=== PATIENT | male | born 1960 | race Caucasian/White ===

== ENCOUNTER 2020-03-20 08:32 | Outpatient (CLI) | payer OTHER, SELFPAY ==
--- NOTE | ~2020-03-20 | US_ITS ---
EXAMINATION: US right upper quadrant EXAM DATE: 03/20/2020 09:22 INDICATION: Gallbladder polyp. TECHNIQUE: Multiple grayscale and Doppler images of the abdomen right upper quadrant were obtained (b y a technologist who performed the scan) and subsequently reviewed. There is no prior study for marc keating. FINDINGS: The pancreatic head and body are normal in appearance. The pancreatic tail is not visualized. The l iver has normal echogenicity and contour. There are no focal liver lesions identified. There is no evidence of intrahepatic biliary duct dilation. Portal venous flow was seen in the hepatopedal, nor mal direction and has normal Doppler waveform. No right-sided hydronephrosis. Common bile duct measures 5 mm, which is normal. The gallbladder wall is normal in thickness, with ex pected amount of distention. No sonographic evidence of pericholecystic fluid. Probable identificat ion of a single 3 mm gallbladder polyp, benign and requiring no further evaluation. No cholelithiasis . Technologist performing exam reports patient did not demonstrate sonographic Mcdonald's sign. Please note that this sign is less reliable in patients who have received pain medication. IMPRESSION: No clinically significant findings. Reviewed, dictated and finalized at location B.
== END 2020-03-20 08:33 | disposition home or self-care (01) ==
LOC: ANHIMG 08:37
PROVIDERS: PCP Internal Medicine; Visit Provider Internal Medicine
DX: K82.4 Cholesterolosis of gallbladder (principal)
CPT/HCPCS: 76705

== ENCOUNTER → 2022-04-08 10:45 | Outpatient (CLI) | payer OTHER, SELFPAY ==
--- NOTE | ~2022-04-08 | US_ITS ---
US right upper quadrant DATE: 04/08/2022 11:18 INDICATION: Gallbladder polyp TECHNIQUE: Real-time imaging of liver, pancreas, gallbladder COMPARISON: 03/20/2020 right upper quadrant abdominal ultrasound examination FINDINGS: The pancreatic head and tail are obscured by bowel gas. No hepatic space-occupying mass lesion is evident. Normal hepatopedal portal venous flow direction. Stable approximately 3 mm polyp near the gallbladder neck. No gallstones, gallbladder wall thickening . Negative sonographic Mcdonald's sign. The common bile duct measures 5 mm, normal. IMPRESSION: Limited evaluation of the pancreas due to overlying bowel gas Stable 3 mm gallbladder polyp, not significantly changed in appearance since 03/20/2020 Reviewed, dictated and finalized at Location A. Reviewed, dictated and finalized at location A.
--- NOTE | ~2022-04-08 | US_ITS ---
This report was recreated on 04/22/2022. Original report was signed by Herman Ramey M.D. on 04/08/2022 14:18 CDT US right upper quadrant DATE: 04/08/2022 11:18 INDICATION: Gallbladder polyp TECHNIQUE: Real-time imaging of liver, pancreas, gallbladder COMPARISON: 03/20/2020 right upper quadrant abdominal ultrasound examination FINDINGS: The pancreatic head and tail are obscured by bowel gas. No hepatic space-occupying mass lesion is evident. Normal hepatopedal portal venous flow direction. Stable approximately 3 mm polyp near the gallbladder neck. No gallstones, gallbladder wall thickening. Negative sonographic Mcdonald's sign. The common bile duct measures 5 mm, normal. IMPRESSION: Limited evaluation of the pancreas due to overlying bowel gas Stable 3 mm gallbladder polyp, not significantly changed in appearance since 03/20/2020 Reviewed, dictated and finalized at Location A. Reviewed, dictated and finalized at location A. Dictated By: Herman Ramey MD 04/08/22 1415 Signed By: <Electronically signed by Herman Ramey MD in [place]> 04/08/22 1418 [facility]
== END ==
LOC: EXPGOSH 10:47 → EXPGOSHRAD 04-12 15:04
PROVIDERS: PCP Internal Medicine; Visit Provider Internal Medicine
DX: K82.4 Cholesterolosis of gallbladder (principal)
CPT/HCPCS: 76705

== ENCOUNTER 2023-05-10 14:37 | Emergency (ER) | payer OTHER, SELFPAY ==
--- NOTE | ~2023-05-10 | XR_ITS ---
EXAMINATION: XR finger 2nd RT min 2V INDICATION: Right second finger laceration TECHNIQUE: Three views of the right second finger are obtained. COMPARISON: None available FINDINGS: Bone alignment is normal. There is no fracture. There is soft tissue laceration of the dist al second finger. No radiopaque foreign body is identified. The joint spaces are normal. IMPRESSION: 1. Soft tissue laceration without acute osseous abnormality or radiopaque foreign body identified. Reviewed, dictated and finalized at location L. IMPRESSION: 1. Soft tissue laceration without acute osseous abnormality or radiopaque forei gn body identified.
[2023-05-10 14:46] VITALS: BP 119/76; PULSE 78; RESP 18; TEMP 36.8; O2SAT 98
--- NOTE | 2023-05-10 15:06 | ED.GENADULT ---
HPI - General Adult General Chief complaint: Wound/Laceration <Klaus Bonner PA-C - Last Filed: 05/10/23 18:40> Stated complaint: lac <Klaus Bonner PA-C - Last Filed: 05/10/23 18:40> Time Seen by Provider: 05/10/23 14:48 <Kluas Bonner PA-C - Last Filed: 05/10/23 18:40> Source: patient <KAREN Kelsey Last Filed: 05/10/23 18:40> Mode of arrival: ambulatory <KAREN Kelsey Last Filed: 05/10/23 18:40> Limitations: no limitations <Klaus Bonner PA-C - Last Filed: 05/10/23 18:40> History of Present Illness HPI narrative: This is a 62-year-old male who presents to the ED with chief complaint of right index finger laceration occurring just prior to arrival. Patient was working out in the yard and using [employer]. He states he had protective gloves on but accidentally put his hand under the guard and subsequently the index finger was injured. He reports significant difficulty with getting bleeding under control. Denies numbness or weakness. Denies any further site of pain or injury. States his tetanus is up-to-date. <Klaus Bonner PA-C - Last Filed: 05/10/23 18:40> Related Data Allergies/adverse reactions: Allergies Allergy/AdvReac Type Severity Reaction Status Date / Time No Known Allergies Allergy Mild Verified 02/08/18 16:41 <Klaus Bonner PA-C - Last Filed: 05/10/23 18:40> Review of Systems Review of Systems: All systems as dictated in HPI <KAREN Kelsey Last Filed: 05/10/23 18:40> [facility] Family History Family History: Family History (Updated 04/23/16 @ 23:19 by DOCTOR UNKNOWN) Mother Hypertension Family history of malignant neoplasm Family history of diabetes mellitus in first degree relative Sibling Family history of malignant neoplasm <KAREN Kelsey Last Filed: 05/10/23 18:40> Social History Social History: Social History Alcohol intake: never <Klaus Bonner PA-C - Last Filed: 05/10/23 18:40> Exam Narrative: GENERAL: Well-appearing, well-nourished, and in no acute distress. HEAD: Normocephalic, atraumatic. EYES: PERRLA and EOMI. ENT: Nares clear, no rhinorrhea or epistaxis. Mucous membranes moist. Oropharynx without tonsillar hypertrophy exudate or other lesions. NECK: Supple. No adenopathy or masses. CHEST: No respiratory distress. Clear to auscultation. No wheezes rales or rhonchi HEART: Regular rate and rhythm. No murmur heard. Normal peripheral pulses. ABDOMEN: Soft, nontender, nondistended, normal active bowel sounds. MSK: Normal range of motion. No edema. SKIN: Irregular laceration to the palmar side of the right index finger. It covers the end of the finger from DIP forward. Consistent with skin flap avulsion injury. Active bleeding during my exam. NEURO: Alert and oriented x3. No focal deficits. PSYCH: Normal mood and affect. 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 <Rell Morgan MD - Last Filed: 05/10/23 18:32> Vital Signs Vital signs: Vital Signs Temperature 98.2 F 05/10/23 14:46 Pulse Rate 78 05/10/23 14:46 Respiratory Rate 18 05/10/23 14:46 Blood Pressure 119/76 05/10/23 14:46 Pulse Oximetry 98 05/10/23 14:46 Oxygen Delivery Room Air 05/10/23 14:46 Temperature 98.0 F 05/10/23 17:22 Pulse Rate 78 05/10/23 17:22 Respiratory Rate 16 05/10/23 17:22 Blood Pressure 118/72 05/10/23 17:22 Pulse Oximetry 98 05/10/23 17:22 Oxygen Delivery Room Air 05/10/23 14:46 <Klaus Bonner PA-C - Last Filed: 05/10/23 18:40> Vital Signs Temperature 98.2 F 05/10/23 14:46 Pulse Rate 78 05/10/23 14:46 Respiratory Rate 18 05/10/23 14:46 Blood Pressure 119/76 05/10/23 14:46 Pulse Oximetry 98 08
[2023-05-10] MEDS: LIDOCAINE HCL 1% LOCAL INJ 10 ML VIAL (16:13)
[2023-05-10 17:22] VITALS: BP 118/72; PULSE 78; RESP 16; TEMP 36.7; O2SAT 98
== END 2023-05-10 17:24 | disposition home or self-care (01) ==
PROVIDERS: Emergency Provider Physician Assistant; PCP Internal Medicine
DX: S61.210A Laceration without foreign body of right index finger without damage to nail, initial encounter (principal); W27.1XXA Contact with garden tool, initial encounter; Y93.H2 Activity, gardening and landscaping
CPT/HCPCS: 12002; 73140; 99283

== ENCOUNTER 2025-01-31 06:55 | Outpatient (CLI) | payer MEDICARE, SELFPAY ==
--- NOTE | ~2025-01-31 | US_ITS ---
US right upper quadrant INDICATION: Follow-up gallbladder polyp PROCEDURE: Realtime right upper abdominal ultrasound. COMPARISON: Ultrasound dated 04/08/2020 FINDINGS: The pancreas is normal without focal mass or pancreatic ductal dilation. Liver echotexture is normal without focal mass or intrahepatic biliary dilatation. There is normal directional flow i n the portal vein. There are gallbladder polyps, largest at the gallbladder neck measuring 6 mm. No gallstones or gallbl adder wall thickening. Common bile duct measures 4 mm. No sonographic Mcdonald's sign. IMPRESSION: 1: Gallbladder polyps, largest in the gallbladder neck measuring 6 mm. Reviewed, dictated and finalized at location A.
--- OUTSIDE RECORDS SUMMARY | 2025-01-31 06:59 | XMS_ITS | Data Portability ---
Author Organization [place] [facility], Main Office Address [address] [place] [address] Assessment Encounter Date Assessment Date Assessment LastModified by Organization Details LastModified Time 03/22/2023 03/22/2023 Continue current therapy blood work 6 month follow-up [email or web address] Not available 03/22/2023 22:00:00 05/31/2023 05/31/2023 Stitches removed from finger laceration preserved motor and vascular and neuro function 11 sutures removed. He will keep his regular appointment Also needs referral to Dermatology for skin lesion [email or web address] Not available 06/12/2023 17:51:19 09/06/2023 09/06/2023 Continue current therapy follow-up 6 months [email or web address] Not available 09/07/2023 18:10:35 Plan of Treatment Reminders Order Date Submit Date Provider Last Modified By Organization Details Last Modified Time Details Appointments None recorded. Lab lipid panel, serum 2022 023 Not available 3 15:58:06 CMP, serum or plasma 2022 023 [email or web address] Not available 3 15:58:06 PSA, serum or plasma 2022 023 cyahl Not available 3 17:18:08 CMP, serum or plasma 2022 023 JASEN Not available 3 13:53:36 lipid panel, serum 2022 023 JASEN Not available 3 13:53:[address] referral 2022 023 Solo Paiz MD, [address] [facility], [facility] [address], [place], [address], 4 18:21:10 Procedures None recorded. Surgeries None recorded. Imaging None recorded. Medication Orders atorvastati n 10 mg tablet 2022 023 [email or web address] [id number], [address] [place], [address], 3 15:58:06 Patient TargetsNo targets recorded. Patient InstructionsNo instructions recorded. 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 1 Not Available [facility] (Lab) [address] [place], [address], 03/22/2023 13:53:36 03/22/20 23 03/22/2023 COMPR EHENS AMOS METAB OLIC PANEL chloride 105 mmol/ L 98-107 Not Available [facility] (Lab) [address] [place], [address], 03/22/2023 13:53:36 03/22/20 23 03/22/2023 COMPR EHENS AMOS METAB OLIC PANEL carbon dioxide 24 mmol/ L 22-30 Not Available [facility] (Lab) [address] [place], [address], 03/22/2023 13:53:36 03/22/20 23 03/22/2023 COMPR EHENS AMOS METAB OLIC PANEL anion gap 14.0 mmol/ L 14-22 Not Available [facility] (Lab) [address] [place], [address], 03/22/2023 13:53:36 03/22/20 23 03/22/2023 COMPR EHENS AMOS METAB OLIC PANEL glucose 108 mg/dL 70-99 high Not Available [facility] (Lab) [address] [place], [address], 03/22/2023 13:53:36 03/22/20 23 03/22/2023 COMPR EHENS AMOS METAB OLIC PANEL BUN 19 mg/dL 8-19 Not Available [facility] (Lab) [address] [place], [address], 03/22/2023 13:53:36 03/22/20 23 03/22/2023 COMPR EHENS AMOS METAB OLIC PANEL creatinine 0.90 mg/dL 0.66-1 .25 Not Available [facility] (Lab) [address] [place], [address], 03/22/2023 13:53:36 03/22/20 23 03/22/2023 COMPR EHENS AMOS METAB OLIC PANEL GFR >60 Refer ence Range : [place] ge GFR Healt hy Adult : >60 mL/mi n/1.7 3 m2 Chron ic Kidne y Disea se: 15-60 mL/mi n/1.7 3 m2 Kidne y Failu re: <15/m L/min /1.73 m2 www.n iddk. nih.g ov The MDRD study equat ion has not been valid ated in child alex <18 years of age; pregn ant women ; the elder ly >85 years of age; or in some racia l or ethni c subgr oups, such as Hispa nics. Outsi de the valid ated salena eters , estim ated GFR is less accur ate, requi ring clini roni judgm ent on a case- by-ca se basis . Clini roni inter preta tion for other races and ages must be made by the clini audie. The MDRD study equat ion has not been valid ated for the evalu ation of serum creat inine relat ed to nutri korey l statu s or medic ation usage . For perso ns <18 years of age, a pedia tric GFR calcu lator is avail able on the [facility] websi te: https ://christophe w.conchis chalino.o rg/pr ofess ional s/kdo qi/gf r_cal culat or Not Available [facility] (Lab) [address] [place], [address], 03/22/2023 13:53:36 03/22/20 23 03/22/2023 COMPR EHENS AMOS METAB OLIC PANEL alkaline phosphatase 106 U/L 38-126 Not Available [facility] (Lab) [address] [place], [address], 03/22/2023 13:53:36 03/22/20 23 03/22/2023 COMPR EHENS AMOS METAB OLIC PANEL alanine aminotransfe rase 97 U/L 0-[address] [facility] (Lab) [address] [place], [address], 03/22/2023 13:53:36 03/22/20 23 03/22/2023 COMPR EHENS AMOS METAB OLIC PANEL aspartate aminotransfe rase 73 U/L 15-[address] [facility] (Lab) [address] [place], [address], 03/22/2023 13:53:36 03/22/20 23 03/22/2023 COMPR EHENS AMOS METAB OLIC PANEL bilirubin, total 0.90 mg/dL 0.20-1 .30 Not Available [facility] (Lab) [address] [place], [address], 03/22/2023 13:53:36 03/22/20 23 03/22/2023 COMPR EHENS AMOS METAB OLIC PANEL calcium 8.5 mg/dL 8.4-10 .2 Not Available [facility] (Lab) [address] [place], [address], 03/22/2023 13:53:36 03/22/20 23 03/22/2023 COMPR EHENS AMOS METAB OLIC PANEL total protein 6.4 g/dL 6.3-8. 2 Not Available [facility] (Lab) [address] [place], [address], 03/22/2023 13:53:36 03/22/20 23 03/22/2023 COMPR EHENS AMOS METAB OLIC PANEL albumin 3.8 g/dL 3.0-4. 4 Not Available [facility] (Lab) [address] [place], [address], 03/22/2023 13:53:36 03/22/20 23 03/22/2023 COMPR EHENS AMOS METAB OLIC PANEL globulin 2.6 g/dL 2.6-4. 2 Not Available [facility] (Lab) [address] [place], [address], 03/22/2023 13:53:36 03/22/20 23 03/22/2023 COMPR EHENS AMOS METAB OLIC PANEL A/G ratio 1.5 ratio 1.0-2. 0 Not Available [facility] (Lab) [address] [place], [address], 03/22/2023 13:53:36 03/22/20 23 03/22/2023 LIPID PANEL cholesterol 149 mg/dL 140-19 9 NIH KARINA NSUS RECOM MENDA TION FOR JACQUELYN STERO L: ADULT CHILD LOW RISK: <200 <170 BORDE RLINE : <200- 239 ----- HIGH RISK: >240 >200 Not Available [facility] (Lab) [address] [place], [address], 03/22/2023 13:53:41 03/22/20 23 03/22/2023 LIPID PANEL triglyceride s 144 mg/dL 0-150 NIH KARINA NSUS REPOR T RECOM MENDA TION FOR TRIGL YCERI WILMER: ADULT CHILD LOW RISK: <150 ----- BODER LINE: 150-1 99 ----- HIGH RISK: >200 ----- Not Available [facility] (Lab) [address] [place], [address], 03/22/2023 13:53:41 03/22/20 23 03/22/2023 LIPID PANEL HDL cholesterol 35 mg/dL 40- low Not Available [facility] (Lab) [address] [place], [address], 03/22/2023 13:53:41 03/22/20 23 03/22/2023 LIPID PANEL LDL cholesterol, calculated 85 mg/dL 0-130 NIH KARINA NSUS REPOR T RECOM MENDA TIONS FOR LDL: ADULT CHILD LOW RISK <130 <110 (OPTI MAL LDL) <100 ----- BORDE RLINE : 130-1 59 ----- HIGH RISK: >160 >130 A TRIGL YCERI DE RESUL T >400 INVAL IDATE S THE CALCU LATIO N FOR LDL FRACT IONAT ION - THE LDL RESUL T WILL NOT BE REPOR DELANEY. Not Available [facility] (Lab) [address] [place], [address], 03/22/2023 13:53:41 03/22/2003/22/2023 PSA SCREE N PSA medicare screen 3.96 NG/mL 0.00-4 .00 Not Available [facility] (Lab) [address] [place], [address], 03/22/2023 14:48:24 09/06/20 23 09/06/2023 LIPID PANEL cholesterol 206 mg/dL 140-19 9 high NIH KARINA NSUS RECOM MENDA TION FOR JACQUELYN STERO L: ADULT CHILD LOW RISK: <200 <170 BORDE RLINE : <200- 239 ----- HIGH RISK: >240 >200 Not Available [facility] (Lab) [address] [place], [address], 09/06/2023 14:20:09 09/06/20 23 09/06/2023 LIPID PANEL triglyceride s 253 mg/dL 0-150 high NIH KARINA NSUS REPOR T RECOM MENDA TION FOR TRIGL YCERI WILMER: ADULT CHILD LOW RISK: <150 ----- BODER LINE: 150-1 99 ----- HIGH RISK: >200 ----- Not Available [facility] (Lab) [address] [place], [address], 09/06/2023 14:20:09 09/06/20 23 09/06/2023 LIPID PANEL HDL cholesterol 38 mg/dL 40- low Not Available [facility] (Lab) [address] [place], [address], 09/06/2023 14:20:09 09/06/20 23 09/06/2023 LIPID PANEL LDL cholesterol, calculated 117 mg/dL 0-130 NIH KARINA NSUS REPOR T RECOM MENDA TIONS FOR LDL: ADULT CHILD LOW RISK <130 <110 (OPTI MAL LDL) <100 ----- BORDE RLINE : 130-1 59 ----- HIGH RISK: >160 >130 A TRIGL YCERI DE RESUL T >400 INVAL IDATE S THE CALCU LATIO N FOR LDL FRACT IONAT ION - THE LDL RESUL T WILL NOT BE REPOR DELANEY. Not Available [facility] (Lab) [address] [place], [address], 09/06/2023 14:20:09 09/06/20 23 09/06/2023 COMPR EHENS AMOS METAB OLIC PANEL sodium 139 mmol/ L 137-14 5 Not Available [facility] (Lab) [address] [place], [address], 09/06/2023 14:20:17 09/06/20 23 09/06/2023 COMPR EHENS AMOS METAB OLIC PANEL potassium 4.5 mmol/ L 3.5-5. 1 Not Available [facility] (Lab) [address] [place], [address], 09/06/2023 14:20:17 09/06/20 23 09/06/2023 COMPR EHENS AMOS METAB OLIC PANEL chloride 107 mmol/ L 98-107 Not Available [facility] (Lab) [address] [place], [address], 09/06/2023 14:20:17 09/06/20 23 09/06/2023 COMPR EHENS AMOS METAB OLIC PANEL carbon dioxide 25 mmol/ L 22-30 Not Available [facility] (Lab) [address] [facility] [place], [address], 09/06/2023 14:20:17 09/06/20 23 09/06/2023 COMPR EHENS AMOS METAB OLIC PANEL anion gap 11.5 mmol/ L 14-22 low Not Available [facility] (Lab) [address] [place], [address], 09/06/2023 14:20:17 09/06/20 23 09/06/2023 COMPR EHENS AMOS METAB OLIC PANEL glucose 98 mg/dL 70-99 Not Available [facility] (Lab) [address] [place], [address], 09/06/2023 14:20:17 09/06/20 23 09/06/2023 COMPR EHENS AMOS METAB OLIC PANEL BUN 17 mg/dL 8-19 Not Available [facility] (Lab) [address] [place], [address], 09/06/2023 14:20:17 09/06/20 23 09/06/2023 COMPR EHENS AMOS METAB OLIC PANEL creatinine 0.92 mg/dL 0.66-1 .25 Not Available [facility] (Lab) [address] [place], [address], 09/06/2023 14:20:17 09/06/20 23 09/06/2023 COMPR EHENS AMOS METAB OLIC PANEL GFR >60 Refer ence Range : [place] ge GFR Healt hy Adult : >60 mL/mi n/1.7 3 m2 Chron ic Kidne y Disea se: 15-60 mL/mi n/1.7 3 m2 Kidne y Failu re: <15/m L/min /1.73 m2 www.n iddk. [facility].g ov The MDRD study equat ion has not been valid ated in child alex <18 years of age; pregn ant women ; the elder ly >85 years of age; or in some racia l or ethni c subgr oups, such as Hispa nics. Outsi de the valid ated salena eters , estim ated GFR is less accur ate, requi ring clini roni judgm ent on a case- by-ca se basis . Clini roni inter preta tion for other races and ages must be made by the clini audie. The MDRD study equat ion has not been valid ated for the evalu ation of serum creat inine relat ed to nutri korey l statu s or medic ation usage . For perso ns <18 years of age, a pedia tric GFR calcu lator is avail able on the [facility] websi te: https ://christophe dior.conchis allred.o paul/pr najmaess ional s/kdo qi/gf r_cal culat or Not Available [facility] (Lab) [address] [place], [address], 09/06/2023 14:20:17 09/06/20 23 09/06/2023 COMPR EHENS AMOS METAB OLIC PANEL alkaline phosphatase 113 U/L 38-126 Not Available [facility] (Lab) [address] [place], [address], 09/06/2023 14:20:17 09/06/20 23 09/06/2023 COMPR EHENS AMOS METAB OLIC PANEL alanine aminotransfe rase 70 U/L 0-[address] [facility] (Lab) [address] [place], [address], 09/06/2023 14:20:17 09/06/20 23 09/06/2023 COMPR EHENS AMOS METAB OLIC PANEL aspartate aminotransfe rase 48 U/L 15-[address] [facility] (Lab) [address] [place], [address], 09/06/2023 14:20:17 09/06/20 23 09/06/2023 COMPR EHENS AMOS METAB OLIC PANEL bilirubin, total 1.10 mg/dL 0.20-1 .30 Not Available [facility] (Lab) [address] [place], [address], 09/06/2023 14:20:17 09/06/20 23 09/06/2023 COMPR EHENS AMOS METAB OLIC PANEL calcium 9.4 mg/dL 8.4-10 .2 Not Available [facility] (Lab) [address] [place], [address], 09/06/2023 14:20:17 09/06/20 23 09/06/2023 COMPR EHENS AMOS METAB OLIC PANEL total protein 7.2 g/dL 6.3-8. 2 Not Available [facility] (Lab) [address] [place], [address], 09/06/2023 14:20:17 09/06/20 23 09/06/2023 COMPR EHENS AMOS METAB OLIC PANEL albumin 4.2 g/dL 3.0-4. 4 Not Available [facility] (Lab) [address] [place], [address], 09/06/2023 14:20:17 09/06/20 23 09/06/2023 COMPR EHENS AMOS METAB OLIC PANEL globulin 3.0 g/dL 2.6-4. 2 Not Available [facility] (Lab) [address] [place], [address], 09/06/2023 14:20:17 09/06/20 23 09/06/2023 COMPR EHENS AMOS METAB OLIC PANEL A/G ratio 1.4 ratio 1.0-2. 0 Not Available [facility] (Lab) [address], [place], [address], 09/06/2023 14:20:17 04/08/20 22 04/08/2022 US, joanna yoo r No observ ation record ed. [id number] [address], [place], [address], 11/24/2022 06:20:53 04/09/20 22 04/08/2022 US, joanna pierce No observ ation record ed. [id number] [address], [place], [address], 11/24/2022 06:20:53 04/22/20 22 04/08/2022 US, joanna yoo r No observ ation record ed. [id number] [place] [address], [place], [address], 11/24/2022 06:20:53 05/10/20 23 05/10/2023 XR, finge r(s) No observ ation record ed. [email or web address] [address], [place], [address], 06/02/2023 10:29:59 03/20/20 24 03/20/2024 US, abdom en, limit ed [facility] [address] [place] [address] [phone] Patien t Name: ROC ROSAS ion #: [id number] Sex: M : 1959 3 Dictat ed By: Lukasz Childress ms Attend ing Physic danitza: THI DALEY [facility] Physic danitza: THI DALEY Exam Date: 2023 10:08 AM Exam Name: US ABDOME N SINGLE ORGAN Admitt ing Diagno sis(es ): EXAM: US ABDOME N SINGLE ORGAN INDICA TION: Polyp of gallbl adder. TECHNI QUE: Multip le real-t rishi sonogr aphic images were obtain ed of the right upper quadra nt. COMPAR PEDRO: None FINDIN GS: The liver is echoge jamey consis tent with steato sis. No focal hepati c mass. There is hepato pedal color dopple r flow in the main portal vein. There is no intrah epatic biliar y ductal dilata tion. The gallbl adder contai ns an echoge jamey nodule measur ing 0.4 cm. The gallbl adder wall measur es 0.2 cm. The common bile duct measur es 0.6 cm. There is a negati ve sonogr aphic Mcdonald 's sign. The right kidney measur es 9.7 cm. The right kidney is normal in contou r, size, and shape. The echoge nicity is normal . There is no hydron ephros is. The pancre as is not well visual ized due to overly ing bowel gas. Visual ized portio ns of the aorta and inferi or vena cava are unrema rkable . No eviden ce of ascite s. IMPRES NUZHAT: 1. Gallbl adder polyp measur ing 0.4 cm. 2. Hepati c steato sis. Page 1 [facility] [address] [address] Patien t Name: ROC ROSAS [facility] ion #: [id number] Sex: M : 1959 3 Dictat ed By: Lukasz Childress ms Attend ing Physic danitza: CHRISTIANE COBIAN Orderi Physic danitza: THI DALEY Exam Date: 2023 10:08 AM Exam Name: US ABDOME N SINGLE ORGAN Admitt ing Diagno sis(es ): Electr onical ly Signed by: Lukasz Childress ms at 2023 10:40: 53 AM Page 2 [email or web address] [facility] (Imaging) [address] [facility] [place], [place], [address], 04/10/2024 10:27:35 Result Notes None recorded. Problems Name Problem SNOMED Code Status Onset Date Resolution Date Notes Provider Name and Address Organization Details Recorded Time Renewal of prescripti on Active 2021 Not Available [facility] 3 06:32:08 Polyp of gallbladde r 779901099 Active 2018 3 mm 2021 Not Available [facility] 3 06:32:08 Long-term drug therapy Active 2021 Not Available [facility] 3 06:32:08 Screening for malignant neoplasm of colon Active 2021 Not Available [facility] 3 06:32:08 Dyslipidem ia 148547945 Active 2016 Not Available [facility] 3 06:32:08 Vertigo 830519426 Active 2016 Not Available [facility] 3 06:32:08 Hyperlipid emia 99498520 Active 2021 Not Available [facility] 3 06:32:08 Skin lesion 63119838 Active 2022 Not Available [facility] 3 06:32:08 Laceration of finger of right hand 4124615352580 9101 Active 2022 Not Available [facility] 3 06:32:08 Problem Notes None recorded. Procedures Surgical History Date Name Laterality Status Provider Name and Address Organization Details Recorded Time 8 screening for malignant neoplasm of colon completed Not Available [facility] 11/24/2022 06:09:31 ENT Surgery completed Not Available [facility] 11/24/2022 06:09:31 Orthopedic Surgery completed Not Available [facility] 11/24/2022 06:09:31 Imaging Results Imaging Date Name Status LastModified by Organiz ation Details LastModified Time 04/08/2022 US, gallbladder completed [email or web address], [place], [address], 11/24/2022 06:20:53 04/08/2022 US, gallbladder completed [email or web address], [place], [address], 11/24/2022 06:20:53 04/08/2022 US, gallbladder completed [email or web address], [place], [address], 11/24/2022 06:20:53 05/10/2023 XR, finger(s) completed [email or web address] [address], [place], [address], 06/02/2023 10:29:59 03/20/2024 US, abdomen, limited completed [email or web address] [facility] ([facility]) [address] [place], [address], 04/10/2024 10:27:35 Procedure Notes None recorded. Medical Equipment None Reported. Allergies No known drug allergies Medications Name Sig Start Date Stop Date Status Note LastModified by Organization Details LastModified Time atorvasta tin 10 mg tablet TAKE 1 TABLET BY MOUTH EVERY DAY active Not Available Not Available No t Available valacyclo vir 1 gram tablet TAKE 1 TABLET BY MOUTH EVERY 8 HOURS 06/29 completed Not Available Not Available Not Available meclizine 25 mg tablet TAKE 1 TABLET BY MOUTH 3 TIMES A DAY 12/29 completed Not Available Not Available Not Available prednison e 50 mg tablet TAKE 1 TABLET BY MOUTH DAILY 06/29 completed Not Available Not Available Not Available amoxicill in 875 mg-potass ium clavulana te 125 mg tablet TAKE 1 TABLET BY MOUTH EVERY 12 HOURS 05/31 completed Not Available Not Available Not Available tobramyci n 0.3 %-dexamet hasone 0.1 % eye drops,rome pension INSTILL 1 DROP INTO LEFT EYE 3 TIMES A DAY 06/29 completed Not Available Not Available Not Available Fish Oil 11/17 completed pt stopped taking Not Available Not Available Not Available Vitals Date Recorded Body mass index (BMI) Body height Heart rate Body temperature Body weight Systolic blood pressure Diastolic blood pressure Provider Name and Address Organization Details Last Updated DateTime 2 27.2 kg/m2 180.34 cm 66 /min 96.2 [degF] 23663.5 1 g 120 mm[Hg] 70 mm[Hg] Not Available [facility] 3 06:11:54 Date Recorded Body mass index (BMI) Body height Heart rate Body temperature Body weight Systolic blood pressure Diastolic blood pressure Provider Name and Address Organization Details Last Updated DateTime 2 27.8 kg/m2 180.34 cm 70 /min 98 [degF] 11231.8 8 g 130 mm[Hg] 74 mm[Hg] Not Available [facility] 3 06:11:55 Date Recorded Body height Body mass index (BMI) Body weight Body temperature Heart rate Systolic blood pressure Diastolic blood pressure Provider Name and Address Organization Details Last Updated DateTime 3 180.34 cm 27.9 kg/m2 94920.4 7 g 98.3 [degF] 69 /min 116 mm[Hg] 70 mm[Hg] THAI Edward [place] [facility] 3 10:20:07 Date Recorded Body height Body mass index (BMI) Body weight Body temperature Heart rate Systolic blood pressure Diastolic blood pressure Provider Name and Address Organization Details Last Updated DateTime 3 180.34 cm 27.2 kg/m2 18303.5 1 g 97.4 [degF] 87 /min 110 mm[Hg] 70 mm[Hg] THAI Edward [employer] [facility] 3 16:47:34 Date Recorded Body height Body mass index (BMI) Body weight Body temperature Heart rate Systolic blood pressure Diastolic blood pressure Provider Name and Address Organization Details Last Updated DateTime 3 180.34 cm 27.8 kg/m2 35205.8 8 g 97.3 [degF] 71 /min 130 mm[Hg] 88 mm[Hg] THAI Edward [facility] 3 10:34:38 Social History Question Answer Notes LastModified by Organization Details LastModified Time Tobacco Smoking Status Never Smoker Not Available [facility] 11/24/2022 06:07:59 Do You Have An Advance Directive? No [id number] Information not available 11/24/2022 What Is Your Level Of Alcohol Consumption? None [id number].0301 [id number] Information not available 11/24/2022 Do You Wear A Helmet When Biking? No [id number].0301 [id number] Information not available 11/24/2022 What Is Your Level Of Caffeine Consumption? Heavy [email or web address].0301 [id number] Information not available 11/24/2022 How Much Tobacco Do You Chew? None [email or web address].0301 [id number] Information not available 11/24/2022 In The 14 Days Before Symptom Onset, Have You Had Close Contact With A Laboratory-confi rmed COVID-19 While That Case Was Ill? No [email or web address].0301 [id number] Information not available 11/24/2022 In The 14 Days Before Symptom Onset, Have You Had Close Contact With A Person Who Is Under Investigation For COVID-19 While That Person Was Ill? No [email or web address].0301 [id number] Information not available 11/24/2022 What Type Of Diet Are You Following? REGULAR [email or web address].030 [id number] Information not available 11/24/2022 Which Illicit Or Recreational Drugs Have You Used? None [id number].0301 [id number] Information not available 11/24/2022 Do You Or Have You Ever Used E-cigarettes Or Vape? Never Used Electronic Cigarettes [email or web address].030 [id number] Information not available 11/24/2022 What Is The Highest Grade Or Level Of School You Have Completed Or The Highest Degree You Have Received? 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 No MIGRATION.0301 [id number] Information not available 11/24/2022 What Is The Fluoride Status Of Your Home? Unknown MIGRATION.0301 [id number] Information not available 11/24/2022 Are There Any Guns Present In Your Home? No MIGRATION.0301 [id number] Information not available 11/24/2022 Do You Use Insect Repellent Routinely? No MIGRATION.0301 [id number] Information not available 11/24/2022 Where Do You Live? [place] MIGRATION.0301 [id number] Information not available 11/24/2022 Do You Have A Medical Power Of Data Warehouse Administrator? No [email or web address].0301 [id number] Information not available 11/24/2022 What Was The Date Of Your Most Recent Tobacco Screening? 09/06/2023 Information not available 09/06/2023 Do You Have Any Pets? Yes MIGRATION.0301 [id number] Information not available 11/24/2022 What Is Your Relationship Status? MIGRATION.0301 [id number] Information not available 11/24/2022 Do You Use Your Seat Belt Or Car Seat Routinely? Yes [email or web address].0301 [id number] Information not available 11/24/2022 Do You Have Smoke And Carbon Monoxide Detectors In Your Home? Yes [email or web address].0301 [id number] Information not available 11/24/2022 Are You Passively Exposed To Smoke? No MIGRATION.0301 [id number] Information not available 11/24/2022 Do You Or Have You Ever Used Smokeless Tobacco? Never Used Smokeless Tobacco MIGRATION.0301 [id number] Information not available 11/24/2022 Are There Any Smokers In Your House? No MIGRATION.0301 600695 Information not available 11/24/2022 How Much Tobacco Do You Smoke? No MIGRATION.0301 197815 Information not available 11/24/2022 What Types Of Sporting Activities Do You Participate In? None MIGRATION.0301 [id number] Information not available 11/24/2022 Do You Feel Stressed (tense, Restless, Nervous, Or Anxious, Or Unable To Sleep At Night)? [id number] MIGRATION.0301 [id number] Information not available 11/24/2022 Do You Use Any Illicit Or Recreational Drugs? No MIGRATION.0301 553511 Information not available 11/24/2022 Do You Use Sunscreen Routinely? No MIGRATION.0301 872985 Information not available 11/24/2022 Has Tobacco Cessation Counseling Been Provided? No Not Needed-n ever Smoked MIGRATION.0301 557325 Information not available 11/24/2022 How Many Years Have You Smoked Tobacco? 0 MIGRATION.0301 773377 Information not available 11/24/2022 Have You Recently Traveled Abroad? No MIGRATION.0301 529217 Information not available 11/24/2022 Do You Have Any Dietary Restrictions? No MIGRATION.0301 822905 Information not available 11/24/2022 Do You Or Have You Ever Used Any Other Forms Of Tobacco Or Nicotine? No MIGRATION.0301 860849 Information not available 11/24/2022 Sex: Male Functional Status Question Answer Note LastModified by Organizat ion Details LastModified Time What is your exercise level? Moderate stays active [id number] Information not available 11/24/2022 Mental Status None recorded. Family History Relationship Description Onset Age of this Age Resolved Age Notes LastModified by Organization Details LastModified Time Mother Diabetes mellitus MIGRATION.809 [id number] Not available 11/24/2022 06:09:34 Mother Malignant neoplasm of urinary bladder deceas ed MIGRATION.454 [id number] Not available 11/24/2022 06:09:34 Father Heart disease MIGRATION.766 [id number] Not available 11/24/2022 06:09:34 Father Gout MIGRATION.749 [id number] Not available 11/24/2022 06:09:34 Father Malignant neoplasm of lung deceas ed MIGRATION.512 [id number] Not available 11/24/2022 06:09:34 Sister Epilepsy MIGRATION.664 [id number] Not available 11/24/2022 06:09:34 Sister Malignant neoplasm of lung MIGRATION.902 [id number] Not available 11/24/2022 06:09:35 Medical History Condition Response NERVE DISEASE N BLINDNESS N RHEUMATIC FEVER N KIDNEY STONES N BLADDER PROBLEMS N MRSA N OTHER # 1 Y POLIO N LUNG DISEASE/DISORDER N RADIATION / CHEMOTHERAPY N COPD N Other # 2 N BLOOD DISEASES N EAR OR HEARING PROBLEMS Y MUMPS N BOWEL PROBLEMS N DEPRESSION (INCLUDING POST ) N STROKE/TIA N ULCERS N BENIGN PROSTATIC HYPERPLASIA N MEASLES N MYOCARDIAL INFARCTION N OBESITY N GERD/NAUSEA N ANEURYSM N URINARY/BLADDER/KIDNEY PROBLEMS N CORONARY ARTERY DISEASE (CAD) N ADDICTION CONCERNS N Impotence N ENDOMETRIOSIS N USE OF BLOOD THINNERS N SKIN PROBLEMS N GASTROINTESTINAL DISORDER N PERIPHERAL VASCULAR DISEASE N MUSCLE,JOINT OR BONE PROBLEMS N GASTROINTESTINAL BLEEDING N BLOOD CLOTS N ASTHMA N CATARACTS N ERECTILE DYSFUNCTION N VARICOSITIES N GI PROBLEMS N Low Testosterone N INFERTILITY N AIDS/HIV N CHEMOTHERAPY / RADIATION N LIVER DISEASE N MALE HYPOGONADISM N HYPERTENSION N Deficiency N TOURETTE'S N ANXIETY DISORDER N BLOOD TRANSFUSION N ANEMIA/BLOOD DISORDER N CHRONIC EAR INFECTIONS N BRONCHITIS N TUBERCULOSIS N GLAUCOMA N FOOT PROBLEM N DIVERTICULITIS N SLEEP APNEA N CHICKENPOX N INFECTIOUS DISEASE N PROSTATE N HEART ARRHYTHMIA N INSOMNIA N HIGH CHOLESTEROL / HYPERLIPIDEMIA Y EYE PROBLEMS N HYPERTHYROIDISM N EDEMA N CHRONIC PAIN SYNDROME N HYPOTHYROIDISM N CONSTIPATION N CAROTID BLOCKAGE N BACK / NECK PROBLEMS N HAVE YOU BEEN HOSPITALIZED OR SEEN IN [facility] ER IN THE PAST YEAR ? N ATHEROSCLEROSIS N BREAST PROBLEMS N DIALYSIS N ECZEMA N OSTEOPOROSIS N ARTHRITIS N APPENDICITIS N DIABETES, TYPE N BAD TEETH N ENT N HEARTBURN / REFLUX N AUTISM SPECTRUM DISORDER (ASD) N HEPATITIS / LIVER DISEASE N GOUT N SLEEP DISORDER N ALZHEIMER'S DISEASE N Brain Problems N DEMENTIA N HERPES N SEIZURES/EPILEPSY N HEADACHES/MIGRAINES N VASCULAR DISEASE N PACEMAKER N Blood Disorder N DIZZINESS Y HEART DISEASE/HEART PROBLEMS N KIDNEY DISEASE N MULTIPLE SCLEROSIS N CANCER: SPECIFY N CARDIAC ARRHYTHMIA N ATRIAL FIBRILLATION N Gall Stones N PULMONARY EMBOLISM N AUTOIMMUNE DISEASE N Past Encounters Encounter ID Performer Location Encounter Start Date Encounter Closed Date Diagnosis/Indication Diagnosis SNOMED-CT Code Diagnosis ICD10 Code Diagnosis Note [id number] Yann Daley MD [facility] Internal Med Earline springer [address] [place] [address] [place] [address] 05/12/2021 00:00:00 06/01/2021 13:59:13 [id number] Yann Daley MD [facility] Internal Med Earline springer [address] [place] [address] [place] [address] 11/17/2021 00:00:00 11/21/2021 13:31:38 [id number] Yann Daley MD [facility] Internal Med [place] [address] [place] [address] [place] [address] 03/23/2022 00:00:00 03/23/2022 20:56:28 [id number] Yann Daley MD [facility] Internal Med [place] [address] [place] [address] [place] [address] 09/14/2022 00:00:00 09/17/2022 14:53:06 [id number] Yann Daley MD [facility] Internal Med [place] [address] [place] [address] [place] [address] 03/22/2023 10:13:51 03/22/2023 11:25:30 Hyperlipidemia 21327477 E78.5 Screening for malignant neoplasm of prostate [id number] Z12.5 [id number] Yann Daley MD [facility] Internal Med [address] [place] [address] 05/31/2023 16:29:35 05/31/2023 17:23:08 Skin lesion 30869716 L98.9 Laceration of finger of right hand [id number] S61.210D [id number] Yann Daley MD [facility] [address] [facility] [place] [address] 09/06/2023 10:30:02 09/06/2023 11:50:27 [facility] [id number] E78.5 Health Concerns Section Related Observation LastModified by Organization Detai ls LastModified Time None Recorded Concern Status LastModified by Organization Details LastModified Time None Recorded Advance Directives Directive N: Payers Encounter Date Sequence Insurance Name Policy Number Policy Brewster Covered Member ID Brewster Member ID Guarantor Name 03/22/2023 1 [facility] [employer] OPEN CHOICE (EPO) [id number] Roc A Rosas [id number] Roc A Rosas 05/31/2023 1 [facility] [employer] - [employer] OPEN CHOICE (EPO) [id number] Roc A Rosas [id number] Roc A Rosas 09/06/2023 1 [facility] [employer] - [employer] OPEN CHOICE (EPO) [id number] Roc A Rosas [id number] Roc A Rosas Notes Date Note Type Note Provider Name and Address Organization Details Recorded Time 03/22/2023 text/html hyperlipidemia taking his medication trying to watch what he eats Yann Daley MD [address], [place], [address], [facility] [employer] [facility] [employer] 03/22/2023 22:00:20 05/31/2023 text/html laceration right index finger stitches were placed Yann Daley MD [address], [place], [address], [facility] [employer] [facility] [employer] 06/12/2023 17:52:03 09/06/2023 text/html hyperlipidemia taking his medication trying to watch what he eats Yann Daley MD [address] [facility], [facility] [address], [place], [address], [facility] 09/07/2023 18:10:55
--- OUTSIDE RECORDS SUMMARY | 2025-01-31 06:59 | XMS_ITS | Continuity of Care Document ---
Author Organization [facility] Address [address] [place] [address] Phone Care Team Providers Care Bowl Topper Name Role Phone Rivera OD, Jemal Unavailable Unavailable Procedures Procedure Date Office/outpatient Visit, Est Office/outpatient Visit, Est Office/outpatient Visit, Est Office/outpatient Visit, Est Office/outpatient Visit, Est Office/outpatient Visit, Est Office/outpatient Visit, Est Office/outpatient Visit, Est Office/outpatient Visit, Est Office/outpatient Visit, Est Office/outpatient Visit, Est -2009 Eye Exam Established Pt Office/outpatient Visit, Est Eye Exam Established Pt Office/outpatient Visit, Est Office/outpatient Visit, Est Office/outpatient Visit, Est Advance Directives Directive Yes / No Effective Date File Name No Information Encounters Encounter Description Practice Location Reason(s) For Visit Diagnoses Date Provider Providers Copied on Encounter Office/outpat ient Visit, [facility] [address], [place], [place], [address], [place] tel:[phone] SEC [facility] No Information 3-201 0 Rivera OD Jemal. [address], [place], [address], [place]. tel:[phone] Office/outpat ient Visit, [facility], [address] [place] [address] [address], [place], [place], [address], [place] tel:[phone] [facility] No Information January- 1-201 0 Rivera OD Jemal. [address], [place], [address], [place]. tel:[phone] Office/outpat ient Visit, [facility], [address] [place] [address] [address], [place], [place], [address], [place] tel:[phone] [facility] No Information Dec-2 7-201 0 Krishnasamy Lobo. [address] [facility] [address], [place], [place], [facility], [place]. tel:[phone] Office/outpat ient Visit, [facility], [address] [place] [address] [address], [place], [place], [address], [place] tel:[phone] [facility] No Information Dec-2 0-201 0 Krishnasamy Lobo. [address] [place] [address] [address], [place], [facility], [place]. tel:[phone] Office/outpat ient Visit, [facility], [address] [place] [address] [address], [place], [place], [address], [place] tel:[phone] [facility] No Information Dec-1 3-201 0 Krishnasamy Lobo. [facility] [address], [place], [address], [place]. tel:[phone] Office/outpat ient Visit, [facility], [address] [place] [address] [address], [place], [place], [address], [place] tel:[phone] [facility] No Information Apr-0 5-201 0 Krishnasamy Lobo. [address] [facility] [place] [address], [place], [address], [place]. tel:[phone] [facility], [address], [place], [place], [address], [place] tel:[phone] SEC [facility] No Information Mar-3 1-201 0 Krishnasamy Lobo. [address], [place], [address], [place]. tel:[phone] Office/outpat ient Visit, [facility], [address] [place] [address] [address], [place], [place], [address], [place] tel:[phone] [facility] No Information Mar-3 0-201 0 Krishnasamy Lobo. [facility] [address], [place], [facility], [place]. tel:[phone] Office/outpat ient Visit, [facility], [address] [place] [address] [address], [place], [place], [address], [place] tel:[phone] [facility] No Information Mar-2 9-201 0 Krishnasamy Lobo. [facility] [address] [facility] [address], [place], [address], [place]. tel:[phone] Office/outpat ient Visit, [facility], [address] [place] [address] [address], [place], [place], [address], [place] tel:[phone] [facility] No Information Mar-2 7-201 0 Rivera OD Jemal. [facility] [address], [place], [address], [place]. tel:[phone] Office/outpat ient Visit, [facility], [address] [place] [address] [address], [place], [place], [address], [place] tel:[phone] [facility] No Information Mar-2 6-201 0 Rivera OD Jemal. [address], [place], [facility], [place]. tel:[phone] [facility], [address], [place], [place], [address], [place] tel:[phone] [facility] No Information Mar-2 5-201 0 Rivera OD Jemal. [address], [place], [facility], [place]. tel:[phone] Office/outpat ient Visit, [facility], [address] [place] [address] [address], [place], [place], [address], [place] tel:[phone] [facility] No Information Dec-3 1-200 9 Rivera OD Jemal. [address], [place], [facility], [place]. tel:[phone] [facility], [address] [place] [address] [address], [place], [place], [address], [place] tel:[phone] [facility] No Information Dec-1 8-200 9 Rivera OD Jemal. [address], [place], [facility], [place]. tel:[phone] Office/outpat ient Visit, [facility], [address] [place] [address] [address], [place], [place], [address], [place] tel:[phone] [facility] No Information Nov-2 0-200 9 Rivera OD Jemal. [address], [place], [facility], [place]. tel:[phone] Office/outpat ient Visit, [facility], [address] [place] [address] [address], [place], [place], [address], [place] tel:[phone] [facility] No Information Apr-2 5-200 8 Rivera OD Jemal. [address] , [address], [place], [address], [place]. tel:[phone] Office/outpat ient Visit, [facility], [address], [place], [place], [address], [place] tel:[phone] [facility] No Information 2-200 8 Rivera OD Jemal. [address], [place], [address], [place]. tel:[phone] Family History Family Member Type Diagnosis Age At Onset No Information Payers Payer name Insurance type Covered green party ID Authorboonea yovani(s) [employer] CI [id number] Social History Type Description Quantity Date Captured [...]
--- OUTSIDE RECORDS SUMMARY | 2025-01-31 06:59 | XMS_ITS | Data Portability ---
Author Organization [facility] Address [address] [place] [address] Assessment Encounter Date Assessment Date Assessment LastModified by Organization Details LastModified Time 12/08/2023 12/08/2023 Ophthalmology referral low-fat diet follow-up for blood pressure right on the unit watch caffeine walk decrease processed food and salt intake [email or web address] Not available 12/11/2023 14:20:28 06/27/2024 06/27/2024 blood work. Atorvastatin. Healthy lifestyle care instructions. Old records so that his screenings and immunizations can be queried by staff follow up 4 months [email or web address] Not available 07/08/2024 18:14:58 01/09/2025 01/09/2025 Cologuard blood work atorvastatin low-fat diet healthy lifestyle care instructions six-month follow up need ultrasound to follow up gallbladder polyp follow up with me in 6 months [email or web address] Not available 01/13/2025 14:42:35 Plan of Treatment Reminders Order Date Submit Date Provider Last Modified By Organization Details Last Modified Time Details Appointments ANY 15 2024 09:00A Darci Daley MD Not available Not available Not available Lab PSA, total, serum or plasma 2024 025 [facility], [address], [place], [address], 01/10/2025 06:55:37 noninvasi ve colorecta l cancer DNA + occult blood screening , QL, stool 2024 025 JASEN [facility] (Cologuard Orders Only), [address], [address], [place], [address], 01/20/2025 14:15:15 CBC w/ auto diff 2024 025 JASEN [facility], [address], [place], [address], 01/10/2025 06:55:35 lipid panel, serum 2024 025 JASEN Osborne, [address], [place], [address], 01/10/2025 06:55:32 CMP, serum or plasma 2024 025 JASEN Osborne, [address], [place], [address], 01/10/2025 06:55:34 CBC w/ auto diff 2023 024 JASEN Osborne, [address], [place], [address], 06/29/2024 08:24:52 CMP, serum or plasma 2023 024 JASEN Osborne, [address], [place], [address], 06/29/2024 08:24:50 lipid panel, serum 2023 024 JASEN Osborne, [address], [place], [address], 06/29/2024 08:24:49 PSA, total, serum or plasma 2023 024 JASEN Osborne, [address], [place], [address], 12/09/2023 08:23:24 lipid panel, serum 2023 024 JASEN Osborne, [address], [place], [address], 12/09/2023 08:23:22 CMP, serum or plasma 2023 024 [place] [facility], [address], [address], [address], 12/09/2023 08:23:23 Referral ophthalmo logist referral 2023 024 [place] [facility], [address], [place], [address], 08/06/2024 07:46:55 Procedures None recorded. Surgeries None recorded. Imaging None recorded. Medication Orders atorvasta tin 10 mg tablet 2024 025 [email or web address] [facility][id number], [address] [place], [address], 01/09/2025 16:10:41 Patient TargetsNo targets recorded. 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 Referring Physician: Yann Daley, Internal Medicine, Encounter Date: 12/08/2023 Results Created Date Observation Date Name Description Value Unit Range Abnormal Flag Note LastModifiedBy Organization Detail LastModifiedTime 12/08/1912/09/2023 LIPID PANEL cholesterol, total 174 mg/dL 100-19 9 Not Available [facility] ([facility]) [address] [facility], [place], [address], 12/09/2023 08:23:22 12/08/19 24 12/09/2023 LIPID PANEL triglyceride s 234 mg/dL 0-149 above high normal Not Available [facility] ([facility]) [address] [facility], [place], [address], 12/09/2023 08:23:22 12/08/19 24 12/09/2023 LIPID PANEL HDL cholesterol 36 mg/dL >39 below low normal Not Available [facility] ([facility]) [address] [place], [address], 12/09/2023 08:23:22 12/08/19 24 12/09/2023 LIPID PANEL VLDL cholesterol roni 40 mg/dL 5-40 Not Available [facility] ([facility]) [address] [place], [address], 12/09/2023 08:23:22 12/08/19 24 12/09/2023 LIPID PANEL LDL chol calc ([facility]) 98 mg/dL 0-99 Not Available [facility] ([facility]) [address] [place], [address], 12/09/2023 08:23:22 12/08/19 24 12/09/2023 COMP. METAB OLIC PANEL (14) glucose 79 mg/dL 70-99 Not Available [facility] ([facility]) [address] [place], [address], 12/09/2023 08:23:23 12/08/19 24 12/09/2023 COMP. METAB OLIC PANEL (14) BUN 12 mg/dL 8-27 Not Available [facility] ([facility]) [address] [place], [address], 12/09/2023 08:23:23 12/08/19 24 12/09/2023 COMP. METAB OLIC PANEL (14) creatinine 0.93 mg/dL 0.76-1 .27 Not Available [facility] ([facility]) [address] [place], [address], 12/09/2023 08:23:23 12/08/19 24 12/09/2023 COMP. METAB OLIC PANEL (14) eGFR 92 mL/mi n/1.7 3 >59 Not Available [facility] ([facility]) [address] [place], [address], 12/09/2023 08:23:23 12/08/19 24 12/09/2023 COMP. METAB OLIC PANEL (14) BUN/creatini ne ratio 13 10-24 Not Available [facility] ([facility]) [address], [place], [address], 12/09/2023 08:23:23 12/08/19 24 12/09/2023 COMP. METAB OLIC PANEL (14) sodium 142 mmol/ L 134-14 4 Not Available [facility] ([facility]) [address], [place], [address], 12/09/2023 08:23:23 12/08/19 24 12/09/2023 COMP. METAB OLIC PANEL (14) potassium 4.8 mmol/ L 3.5-5. 2 Not Available [facility] ([facility]) [address], [place], [address], 12/09/2023 08:23:23 12/08/19 24 12/09/2023 COMP. METAB OLIC PANEL (14) chloride 104 mmol/ L 96-106 Not Available [facility] ([facility]) [address], [place], [address], 12/09/2023 08:23:23 12/08/19 24 12/09/2023 COMP. METAB OLIC PANEL (14) carbon dioxide, total 23 mmol/ L 20-29 Not Available [facility] ([facility]) [address], [place], [address], 12/09/2023 08:23:23 12/08/19 24 12/09/2023 COMP. METAB OLIC PANEL (14) calcium 9.4 mg/dL 8.6-10 .2 Not Available [facility] ([facility]) [address] [facility], [place], [address], 12/09/2023 08:23:23 12/08/19 24 12/09/2023 COMP. METAB OLIC PANEL (14) protein, total 6.9 g/dL 6.0-8. 5 Not Available [facility] ([facility]) [address] [facility], [place], [address], 12/09/2023 08:23:23 12/08/19 24 12/09/2023 COMP. METAB OLIC PANEL (14) albumin 4.6 g/dL 3.9-4. 9 Not Available [facility] ([facility]) [address] [facility], [place], [address], 12/09/2023 08:23:23 12/08/19 24 12/09/2023 COMP. METAB OLIC PANEL (14) globulin, total 2.3 g/dL 1.5-4. 5 Not Available [facility] ([facility]) [address] [facility], [place], [address], 12/09/2023 08:23:23 12/08/19 24 12/09/2023 COMP. METAB OLIC PANEL (14) A/G ratio 2.0 1.2-2. 2 Not Available [facility] ([facility]) [address] [facility], [place], [address], 12/09/2023 08:23:23 12/08/19 24 12/09/2023 COMP. METAB OLIC PANEL (14) bilirubin, total 0.7 mg/dL 0.0-1. 2 Not Available [facility] ([facility]) [address] [facility], [place], [address], 12/09/2023 08:23:23 12/08/19 24 12/09/2023 COMP. METAB OLIC PANEL (14) alkaline phosphatase 150 IU/L 44-121 above high normal Not Available [facility] ([facility]) [address] [facility], [place], [address], 12/09/2023 08:23:23 12/08/19 24 12/09/2023 COMP. METAB OLIC PANEL (14) AST (SGOT) 45 IU/L 0-40 above high normal Not Available [facility] ([facility]) [address] [facility], [place], [address], 12/09/2023 08:23:23 12/08/19 24 12/09/2023 COMP. METAB OLIC PANEL (14) ALT (SGPT) 73 IU/L 0-44 above high normal Not Available [facility] ([facility]) [address] [facility], [place], [address], 12/09/2023 08:23:23 12/08/19 24 12/09/2023 PROST ATE-S PECIF IC AG prostate specific Ag 2.6 NG/mL 0.0-4. 0 [place] ECLIA metho dolog y. Accor ding to the Ameri can Urolo gical Assoc iatio n, Serum PSA shoul d decre ase and remai n at undet ectab le level s after radic al prost atect peace. The AUA defin es bioch emica l recur rence as an initi al PSA value 0.2 ng/mL or great er follo wed by a subse quent confi rmato ry PSA value 0.2 ng/mL or great er. Value s obtai oleg with diffe rent assay metho ds or kits canno t be used inter yin eably . Resul ts canno t be inter prete d as absol [place] evide nce of the prese nce or [facility]. Not Available [facility] ([facility]) [address] [facility], [place], [address], 12/09/2023 08:23:23 03/21/20 24 03/22/2024 ACUTE HEPAT ITIS hep A Ab, IgM Negati ve negati ve Not Available [facility] ([facility]) [address] [facility], [place], [address], 03/23/2024 03:36:58 03/21/20 24 03/22/2024 ACUTE HEPAT ITIS HBsAg screen Negati ve negati ve Not Available [facility] ([facility]) [address] [facility], [place], [address], 03/23/2024 03:36:58 03/21/20 24 03/22/2024 ACUTE HEPAT ITIS hep B core Ab, IgM Negati ve negati ve Not Available [facility] ([facility]) [address] [facility], [address], 03/23/2024 03:36:58 03/21/20 24 03/22/2024 ACUTE HEPAT ITIS HCV Ab Non Reacti ve nonrea ctive Not Available [facility] ([facility]) [address] [facility], [place], [address], 03/23/2024 03:36:58 03/21/20 24 03/22/2024 INTER PRETA TION: interpretati on: Commen t Not infec brett with HCV unles s early or acute infec tion is suspe cted (whic h may be delay ed in an immun ocomp romis ed indiv idual ), or other evide nce exist s to indic ate HCV infec tion. Not Available [facility] ([facility]) [address] [facility], [place], [address], 03/23/2024 03:36:59 03/21/20 24 03/22/2024 AISHA AISHA direct NEGATI VE negati ve Not Available [facility] ([facility]) [address] [facility], [place], [address], 03/23/2024 03:36:59 03/21/20 24 03/22/2024 CERUL OPLAS MIN ceruloplasmi n 20.7 mg/dL 16.0-3 1.0 Not Available [facility] ([facility]) [address] [place], [address], 03/23/2024 03:37:00 03/21/20 24 03/23/2024 COPPE R, SERUM OR PLASM A copper, serum or plasma 84 ug/dL 69-132 Detec tion Limit = 5 Not Available [facility] ([facility]) [address] [place], [address], 03/23/2024 03:37:00 03/21/20 24 03/22/2024 ALPHA -1-AN TITRY PSIN, SERUM lnhrj-2-ieud trypsin, serum 140 mg/dL 101-18 7 Not Available [facility] ([facility]) [address] [place], [address], 03/23/2024 03:37:01 03/21/20 24 03/22/2024 FE+TI BC+FE R iron bind.cap.(TI BC) 258 ug/dL 250-45 0 Not Available [facility] ([facility]) [address] [place], [address], 03/23/2024 03:37:01 03/21/20 24 03/22/2024 FE+TI BC+FE R UIBC 167 ug/dL 111-34 3 Not Available [facility] ([facility]) [address] [place], [address], 03/23/2024 03:37:01 03/21/20 24 03/22/2024 FE+TI BC+FE R iron 91 ug/dL 38-169 Not Available [facility] ([facility]) [address] [place], [address], 03/23/2024 03:37:01 03/21/20 24 03/22/2024 FE+TI BC+FE R iron saturation 35 % 15-55 Not Available [facility] ([facility]) [address] [place], [address], 03/23/2024 03:37:01 03/21/20 24 03/22/2024 FE+TI BC+FE R ferritin 712 NG/mL 30-400 above high normal Not Available [facility] ([facility]) [address] [place], [address], 03/23/2024 03:37:01 06/28/2006/29/2024 LIPID PANEL cholesterol, total 184 mg/dL 100-19 9 Not Available [facility] ([facility]) [address] [place], [address], 06/29/2024 08:24:49 06/28/2006/29/2024 LIPID PANEL triglyceride s 158 mg/dL 0-149 above high normal Not Available [facility] ([facility]) [address] [place], [address], 06/29/2024 08:24:49 06/28/2006/29/2024 LIPID PANEL HDL cholesterol 38 mg/dL >39 below low normal Not Available [facility] ([facility]) [address] [place], [address], 06/29/2024 08:24:49 06/28/2006/29/2024 LIPID PANEL VLDL cholesterol roni 28 mg/dL 5-40 Not Available [facility] ([facility]) [address] [place], [address], 06/29/2024 08:24:49 06/28/2006/29/2024 LIPID PANEL LDL chol calc ([facility]) 118 mg/dL 0-99 above high normal Not Available [facility] ([facility]) [address] [place], [address], 06/29/2024 08:24:49 06/28/2006/29/2024 COMP. METAB OLIC PANEL (14) glucose 131 mg/dL 70-99 above high normal Not Available [facility] ([facility]) [address] [place], [address], 06/29/2024 08:24:50 06/28/20 24 06/29/2024 COMP. METAB OLIC PANEL (14) BUN 13 mg/dL 8-27 Not Available [facility] ([facility]) [address] [facility], [place], [address], 06/29/2024 08:24:50 06/28/20 24 06/29/2024 COMP. METAB OLIC PANEL (14) creatinine 1.00 mg/dL 0.76-1 .27 Not Available [facility] ([facility]) [address] [facility], [place], [address], 06/29/2024 08:24:50 06/28/20 24 06/29/2024 COMP. METAB OLIC PANEL (14) eGFR 84 mL/mi n/1.7 3 >59 Not Available [facility] ([facility]) [address] [facility], [place], [address], 06/29/2024 08:24:50 06/28/20 24 06/29/2024 COMP. METAB OLIC PANEL (14) BUN/creatini ne ratio 13 10-24 Not Available [facility] ([facility]) [address] [facility], [place], [address], 06/29/2024 08:24:50 06/28/2006/29/2024 COMP. METAB OLIC PANEL (14) sodium 141 mmol/ L 134-14 4 Not Available [facility] ([facility]) [address] [facility], [place], [address], 06/29/2024 08:24:50 06/28/20 24 06/29/2024 COMP. METAB OLIC PANEL (14) potassium 4.7 mmol/ L 3.5-5. 2 Not Available [facility] ([facility]) [address] [facility], [place], [address], 06/29/2024 08:24:50 06/28/20 24 06/29/2024 COMP. METAB OLIC PANEL (14) chloride 104 mmol/ L 96-106 Not Available [facility] ([facility]) [address] [facility], [place], [address], 06/29/2024 08:24:50 06/28/20 24 06/29/2024 COMP. METAB OLIC PANEL (14) carbon dioxide, total 23 mmol/ L 20-29 Not Available [facility] ([facility]) [address] [place], [address], 06/29/2024 08:24:50 06/28/20 24 06/29/2024 COMP. METAB OLIC PANEL (14) calcium 9.1 mg/dL 8.6-10 .2 Not Available [facility] ([facility]) [address], [place], [address], 06/29/2024 08:24:50 06/28/2006/29/2024 COMP. METAB OLIC PANEL (14) protein, total 6.6 g/dL 6.0-8. 5 Not Available [facility] ([facility]) [address] [place], [address], 06/29/2024 08:24:50 06/28/20 24 06/29/2024 COMP. METAB OLIC PANEL (14) albumin 4.3 g/dL 3.9-4. 9 Not Available [facility] ([facility]) [address] [place], [address], 06/29/2024 08:24:50 06/28/20 24 06/29/2024 COMP. METAB OLIC PANEL (14) globulin, total 2.3 g/dL 1.5-4. 5 Not Available [facility] ([facility]) [address] [facility] [place], [address], 06/29/2024 08:24:50 06/28/2006/29/2024 COMP. METAB OLIC PANEL (14) bilirubin, total 0.5 mg/dL 0.0-1. 2 Not Available [facility] ([facility] [address] [place], [address], 06/29/2024 08:24:50 06/28/20 24 06/29/2024 COMP. METAB OLIC PANEL (14) alkaline phosphatase 165 IU/L 44-121 above high normal Not Available [facility] ([facility]) [address] [place], [address], 06/29/2024 08:24:50 06/28/20 24 06/29/2024 COMP. METAB OLIC PANEL (14) AST (SGOT) 45 IU/L 0-40 above high normal Not Available [facility] ([facility]) [address] [facility], [place], [address], 06/29/2024 08:24:50 06/28/2006/29/2024 COMP. METAB OLIC PANEL (14) ALT (SGPT) 72 IU/L 0-44 above high normal Not Available [facility] ([facility]) [address] [facility], [place], [address], 06/29/2024 08:24:50 06/28/2006/29/2024 CBC WITH DIFFE RENTI AL/PL ATELE T WBC 6.5 x10e3 /uL 3.4-10 .8 Not Available [facility] ([facility]) [address] [facility], [place], [address], 06/29/2024 08:24:52 06/28/2006/29/2024 CBC WITH DIFFE RENTI AL/PL ATELE T RBC 5.09 x10e6 /uL 4.14-5 .80 Not Available [facility] ([facility]) [address] [place], [address], 06/29/2024 08:24:52 06/28/2006/29/2024 CBC WITH DIFFE RENTI AL/PL ATELE T hemoglobin 16.0 g/dL 13.0-1 7.7 Not Available [facility] ([facility]) [address] [place], [address], 06/29/2024 08:24:52 06/28/2006/29/2024 CBC WITH DIFFE RENTI AL/PL ATELE T hematocrit 49.2 % 37.5-5 1.0 Not Available [facility] ([facility]) [address] [facility], [place], [address], 06/29/2024 08:24:52 06/28/2006/29/2024 CBC WITH DIFFE RENTI AL/PL ATELE T MCV 97 fL 79-97 Not Available [facility] ([facility]) [address] [facility], [place], [address], 06/29/2024 08:24:52 06/28/2006/29/2024 CBC WITH DIFFE RENTI AL/PL ATELE T MCH 31.4 pg 26.6-3 3.0 Not Available [facility] ([facility]) [address] [facility], [place], [address], 06/29/2024 08:24:52 06/28/2006/29/2024 CBC WITH DIFFE RENTI AL/PL ATELE T MCHC 32.5 g/dL 31.5-3 5.7 Not Available [facility] ([facility]) [address] [facility], [place], [address], 06/29/2024 08:24:52 06/28/2006/29/2024 CBC WITH DIFFE RENTI AL/PL ATELE T RDW 12.3 % 11.6-1 5.4 Not Available [facility] ([facility]) [address] [facility], [place], [address], 06/29/2024 08:24:52 06/28/2006/29/2024 CBC WITH DIFFE RENTI AL/PL ATELE T platelets 191 x10e3 /uL 150-45 0 Not Available [facility] ([facility]) [address] [place], [address], 06/29/2024 08:24:52 06/28/2006/29/2024 CBC WITH DIFFE RENTI AL/PL ATELE T neutrophils 65 % notest ab. Not Available [facility] ([facility]) [address] [facility], [place], [address], 06/29/2024 08:24:52 06/28/2006/29/2024 CBC WITH DIFFE RENTI AL/PL ATELE T lymphs 19 % notest ab. Not Available [facility] ([facility]) [address] [facility], [place], [address], 06/29/2024 08:24:52 06/28/2006/29/2024 CBC WITH DIFFE RENTI AL/PL ATELE T monocytes 8 % notest ab. Not Available [facility] ([facility]) [address] [facility], [place], [address], 06/29/2024 08:24:52 06/28/2006/29/2024 CBC WITH DIFFE RENTI AL/PL ATELE T eos 6 % notest ab. Not Available [facility] ([facility]) [address] [facility], [place], [address], 06/29/2024 08:24:52 06/28/2006/29/2024 CBC WITH DIFFE RENTI AL/PL ATELE T basos 1 % notest ab. Not Available [facility] ([facility]) [address] [facility], [place], [address], 06/29/2024 08:24:52 06/28/2006/29/2024 CBC WITH DIFFE RENTI AL/PL ATELE T neutrophils (absolute) 4.3 x10e3 /uL 1.4-7. 0 Not Available [facility] ([facility]) [address] [facility], [place], [address], 06/29/2024 08:24:52 06/28/20 24 06/29/2024 CBC WITH DIFFE RENTI AL/PL ATELE T lymphs (absolute) 1.3 x10e3 /uL 0.7-3. 1 Not Available [facility] ([facility]) [address] [facility], [place], [address], 06/29/2024 08:24:52 06/28/20 24 06/29/2024 CBC WITH DIFFE RENTI AL/PL ATELE T monocytes(ab solute) 0.5 x10e3 /uL 0.1-0. 9 Not Available [facility] ([facility]) [address] [facility], [place], [address], 06/29/2024 08:24:52 06/28/2006/29/2024 CBC WITH DIFFE RENTI AL/PL ATELE T eos (absolute) 0.4 x10e3 /uL 0.0-0. 4 Not Available [facility] ([facility]) [address] [facility], [place], [address], 06/29/2024 08:24:52 06/28/2006/29/2024 CBC WITH DIFFE RENTI AL/PL ATELE T baso (absolute) 0.1 x10e3 /uL 0.0-0. 2 Not Available [facility] ([facility]) [address] [facility], [place], [address], 06/29/2024 08:24:52 06/28/20 24 06/29/2024 CBC WITH DIFFE RENTI AL/PL ATELE T immature granulocytes 1 % notest ab. Not Available [facility] ([facility]) [address] [facility], [place], [address], 06/29/2024 08:24:52 06/28/2006/29/2024 CBC WITH DIFFE RENTI AL/PL ATELE T immature grans (abs) 0.0 x10e3 /uL 0.0-0. 1 Not Available [facility] ([facility]) [address] [facility], [place], [address], 06/29/2024 08:24:52 07/04/20 24 07/05/2024 INTER PRETA TION: interpretati on: COMMEN T Not infec brett with HCV unles s early or acute infec tion is suspe cted (whic h may be delay ed in an immun ocomp romis ed indiv idual ), or other evide nce exist s to indic ate HCV infec tion. Not Available [facility] [address] [facility], [place], [address], 07/07/2024 13:15:28 07/04/20 24 07/04/2024 HAV, HBV, HCV interpretati on COMMEN T HBV Serol ogy Inter preta tion Chart ----- ----- ----- ----- ----- ----- ----- ----- ----- ----- ----- ----- ----- -- Inter preta tion HBsAg anti- HBs anti- HBc anti- HBc IgM ----- ----- ----- ----- ----- ----- ----- ----- ----- ----- ----- ----- ----- -- Maldonado - Jesus te prese nt: + Jesus te absen t: - Test not indic ated: TNI ----- ----- ----- ----- ----- ----- ----- ----- ----- ----- ----- ----- ----- -- Susce ptibl e (neve r infec brett and no evide nce - - - TNI of vacci natio n) ----- ----- ----- ----- ----- ----- ----- ----- ----- ----- ----- ----- ----- -- Immun e due to natur al resol samira infec tion - + + TNI ----- ----- ----- ----- ----- ----- ----- ----- ----- ----- ----- ----- ----- -- Immun e due to vacci natio n - + - TNI ----- ----- ----- ----- ----- ----- ----- ----- ----- ----- ----- ----- ----- -- Acute Infec tion + - + + ----- ----- ----- ----- ----- ----- ----- ----- ----- ----- ----- ----- ----- -- Chron ic infec tion + - + - ----- ----- ----- ----- ----- ----- ----- ----- ----- ----- ----- ----- ----- -- Inter preta tion uncle ar* - - + +/- ----- ----- ----- ----- ----- ----- ----- ----- ----- ----- ----- ----- ----- -- *Mult iple possi bilit ies: resol samira infec tion (most commo n); false - posit amos anti- HBc ([facility]); low- level chron ic infec tion ; resol ving acute infec tion. Not Available [facility] ([facility]) [address] [facility], [place], [address], 07/07/2024 13:15:29 07/04/20 24 07/05/2024 HAV, HBV, HCV hep A Ab, total NEGATI VE negati ve Comme nt: The HAV total antib belinda assay detec ts both IgG and IgM but does not diffe renti ate betwe en them. A negat amos resul t sugge sts susce ptibi lity to infec tion. A posit amos resul t could be due to vacci natio n, previ ously resol samira infec tion or activ e infec tion. Testi ng for HAV IgM shoul d be perfo rmed if activ e HAV infec tion is suspe cted. [facility] offer s profi les that will autom atica lly refle x posit amos HAV total antib belinda resul ts to IgM (e.g. , panel #[id number] HAV Antib belinda w/ Rfx). Not Available [facility] ([facility]) [address] [place], [address], 07/07/2024 13:15:29 07/04/20 24 07/05/2024 HAV, HBV, HCV HBsAg screen NEGATI VE negati ve Not Available [facility] ([facility]) [address] [facility], [place], [address], 07/07/2024 13:15:29 07/04/20 24 07/05/2024 HAV, HBV, HCV hep B surface Ab, qual NON REACTI VE Non React amos: Not immun e to HBV infec tion. Equiv ocal: Unabl e to deter mine if anti- HBs is prese nt at level s consi stent with immun ity. React amos: Anti- HBs keiko ntrat ion detec brett at great er than 10 mIU/m L. Indiv idual is consi dered to be immun e to infec tion with HBV. Not Available [facility] ([facility]) [address] [place], [address], 07/07/2024 13:15:29 07/04/20 24 07/05/2024 HAV, HBV, HCV hep B core Ab, tot NEGATI VE negati ve Not Available [facility] ([facility]) [address] [facility], [place], [address], 07/07/2024 13:15:29 07/04/20 24 07/05/2024 HAV, HBV, HCV rfx to hbc IgM TUAN Quiroga Refle x crite asif was not met. Not Available [facility] ([facility]) [address] [facility], [place], [address], 07/07/2024 13:15:29 07/04/20 24 07/05/2024 HAV, HBV, HCV HCV Ab NON REACTI VE nonrea ctive Not Available [facility] ([facility]) [address] [facility], [place], [address], 07/07/2024 13:15:29 07/04/20 24 07/04/2024 ANTIN UCLEA R AB 11 BY MULTI PLEX see below: TUAN Quiroga Autoa ntibo dy Disea se Assoc iatio n Condi tion Frequ ency _ ____ ____ Antin uclea r Antib belinda, SLE, mixed conne ctive Direc t (AISHA- D) tissu e disea ses _ ____ ____ dsDNA SLE 40 - 60% _ ____ ____ Chrom atin Drug induc ed SLE 90% SLE 48 - 97% _ ____ ____ SSA (Ro) SLE 25 - 35% Sjogr en's Syndr ome 40 - 70% Neona nathan Lupus 100% _ ____ ____ SSB ([place]) SLE 10% Sjogr en's Syndr ome 30% _ ___ ____ Sm (anti -Anthony h) SLE 15 - 30% _ ___ ____ AS400 ANALYST Mixed Conne ctive Tissu e Disea se 95% (U1 nRNP, SLE 30 - 50% anti- ribon ucleo prote in) Polym yosit is and/o r [place] tomyo sitis 20% _ ____ ____ Scl-7 0 (anti DNA Scler oderm a (diff use) 20 - 35% topoi janie ase) Crest 13% _ ____ ____ Melissa-1 Polym yosit is and/o r [place] tomyo sitis 20 - 40% _ ____ ____ Centr omere B Scler oderm a - Crest varia nt 80% _ ____ ____ Ribos omal P SLE 10 - 20% Not Available [facility] ([facility]) [address] [place], [address], 07/07/2024 13:15:30 07/04/20 24 07/05/2024 ANTIN UCLEA R AB 11 BY MULTI PLEX anti-DNA (ds) Ab qn 1 IU/mL 0-9 Negat amos <5 Equiv ocal 5 - 9 Posit amos >9 Not Available [facility] ([facility]) [address] [place], [address], 07/07/2024 13:15:30 07/04/20 24 07/05/2024 ANTIN UCLEA R AB 11 BY MULTI PLEX informatics developer antibodies 0.2 ai 0.0-0. 9 Not Available [facility] ([facility]) [address] [place], [address], 07/07/2024 13:15:30 07/04/20 24 07/05/2024 ANTIN UCLEA R AB 11 BY MULTI PLEX melton antibodies <0.2 ai 0.0-0. 9 Not Available [facility] ([facility]) [address] [place], [address], 07/07/2024 13:15:30 07/04/20 24 07/05/2024 ANTIN UCLEA R AB 11 BY MULTI PLEX melton/informatics developer antibodies <0.2 Not Available [facility] ([facility]) [address] [place], [address], 07/07/2024 13:15:30 07/04/20 24 07/05/2024 ANTIN UCLEA R AB 11 BY MULTI PLEX antisclerode rma-70 antibodies <0.2 Not Available [facility] ([facility]) [address] [facility], [place], [address], 07/07/2024 13:15:30 07/04/20 24 07/05/2024 ANTIN UCLEA R AB 11 BY MULTI PLEX sjogren's anti-ss-A 0.2 ai 0.0-0. 9 Not Available [facility] ([facility]) [address] [facility], [place], [address], 07/07/2024 13:15:30 07/04/20 24 07/05/2024 ANTIN UCLEA R AB 11 BY MULTI PLEX sjogren's anti-ss-B <0.2 ai 0.0-0. 9 Not Available [facility] ([facility]) [address] [facility], [place], [address], 07/07/2024 13:15:30 07/04/20 24 07/05/2024 ANTIN UCLEA R AB 11 BY MULTI PLEX antichromati n antibodies <0.2 Not Available [facility] ([facility]) [address] [facility], [place], [address], 07/07/2024 13:15:30 07/04/20 24 07/05/2024 ANTIN UCLEA R AB 11 BY MULTI PLEX antiribosoma l P antibodies <0.2 Not Available [facility] ([facility]) [address] [place], [address], 07/07/2024 13:15:30 07/04/20 24 07/05/2024 ANTIN UCLEA R AB 11 BY MULTI PLEX anti-melissa-1 <0.2 Not Available [facility] ([facility]) [address] [place], [address], 07/07/2024 13:15:30 07/04/20 24 07/05/2024 ANTIN UCLEA R AB 11 BY MULTI PLEX anti-centrom ere B antibodies <0.2 Not Available [facility] ([facility]) [address] [facility], [place], [address], 07/07/2024 13:15:30 07/04/20 24 07/05/2024 IRON AND TIBC iron bind.cap.(TI BC) 246 ug/dL 250-45 0 below low normal Not Available [facility] ([facility]) [address] [facility], [place], [address], 07/07/2024 13:15:31 07/04/20 24 07/05/2024 IRON AND TIBC UIBC 93 ug/dL 111-34 3 below low normal Not Available [facility] ([facility]) [address] [facility], [place], [address], 07/07/2024 13:15:31 07/04/20 24 07/05/2024 IRON AND TIBC iron 153 ug/dL 38-169 Not Available [facility] ([facility]) [address] [place], [address], 07/07/2024 13:15:31 07/04/20 24 07/05/2024 IRON AND TIBC iron saturation 62 % 15-55 above high normal Not Available [facility] ([facility]) [address] [place], [address], 07/07/2024 13:15:31 07/04/20 24 07/04/2024 HEMOG LOBIN A1C hemoglobin A1C 6.3 % 4.8-5. 6 above high normal Predi abete s: 5.7 - 6.4 Diabe charlie: >6.4 Glyce oracio contr ol for adult s with diabe charlie: <7.0 Not Available [facility] ([facility]) [address] [place], [address], 07/07/2024 13:15:32 07/04/20 24 07/05/2024 CERUL OPLAS MIN ceruloplasmi n 20.7 mg/dL 16.0-3 1.0 Not Available [facility] ([facility]) [address] [place], [address], 07/07/2024 13:15:33 07/04/2007/07/2024 COPPE R, SERUM OR PLASM A copper, serum or plasma 84 ug/dL 69-132 Detec tion Limit = 5 Not Available [facility] ([facility]) [address] [place], [address], 07/07/2024 13:15:34 07/04/2007/05/2024 FRANDY TIN ferritin 735 NG/mL 30-400 above high normal Not Available [facility] ([facility]) [address] [place], [address], 07/07/2024 13:15:35 07/04/2007/05/2024 ANTI- ROWENA H MUSCL E/EDUARDO OCHON D. actin (smooth muscle) antibody 5 units 0-19 Negat amos 0 - 19 Weak posit amos 20 - 30 Moder ate to stron g posit amos >30 Actin Antib odies are found in 52-85 % of patie nts with autoi mmune hepat itis or chron ic activ e hepat itis and in 22% of patie nts with prima ry bilia ry cirrh osis. Not Available [facility] ([facility]) [address] [place], [address], 07/07/2024 13:15:36 07/04/2007/05/2024 ANTI- ROWENA H MUSCL E/EDUARDO OCHON D. mitochondria l (M2) antibody <20.0 units 0.0-20 .0 Negat amos 0.0 - 20.0 Equiv ocal 20.1 - 24.9 Posit amos >24.9 Mitoc hondr ial (M2) Antib odies are found in 90-96 % of patie nts with prima ry bilia ry cirrh osis. Not Available [facility] ([facility]) [address] [place], [address], 07/07/2024 13:15:36 01/10/20 25 01/10/2025 LIPID PANEL cholesterol, total 167 mg/dL 100-19 9 Not Available [facility] ([facility]) [address] [place], [address], 01/10/2025 06:55:32 01/10/20 25 01/10/2025 LIPID PANEL triglyceride s 130 mg/dL 0-149 Not Available [facility] ([facility]) [address] [place], [address], 01/10/2025 06:55:32 01/10/20 25 01/10/2025 LIPID PANEL HDL cholesterol 37 mg/dL >39 below low normal Not Available [facility] ([facility]) [address] [place], [address], 01/10/2025 06:55:32 01/10/20 25 01/10/2025 LIPID PANEL VLDL cholesterol roni 23 mg/dL 5-40 Not Available [facility] ([facility]) [address] [place], [address], 01/10/2025 06:55:32 01/10/20 25 01/10/2025 LIPID PANEL LDL chol calc ([facility]) 107 mg/dL 0-99 above high normal Not Available [facility] ([facility]) [address] [place], [address], 01/10/2025 06:55:32 01/10/20 25 01/10/2025 COMP. METAB OLIC PANEL (14) glucose 118 mg/dL 70-99 above high normal Not Available [facility] ([facility]) [address] [place], [address], 01/10/2025 06:55:34 01/10/20 25 01/10/2025 COMP. METAB OLIC PANEL (14) BUN 16 mg/dL 8-27 Not Available [facility] ([facility]) [address] [place], [address], 01/10/2025 06:55:34 01/10/20 25 01/10/2025 COMP. METAB OLIC PANEL (14) creatinine 1.04 mg/dL 0.76-1 .27 Not Available [facility] ([facility]) [address] [place], [address], 01/10/2025 06:55:34 01/10/20 25 01/10/2025 COMP. METAB OLIC PANEL (14) eGFR 80 mL/mi n/1.7 3 >59 Not Available [facility] ([facility]) [address] [facility], [place], [address], 01/10/2025 06:55:34 01/10/20 25 01/10/2025 COMP. METAB OLIC PANEL (14) BUN/creatini ne ratio 15 10-24 Not Available [facility] ([facility]) [address] [place], [address], 01/10/2025 06:55:34 01/10/20 25 01/10/2025 COMP. METAB OLIC PANEL (14) sodium 139 mmol/ L 134-14 4 Not Available [facility] ([facility]) [address] [place], [address], 01/10/2025 06:55:34 01/10/20 25 01/10/2025 COMP. METAB OLIC PANEL (14) potassium 4.5 mmol/ L 3.5-5. 2 Not Available [facility] ([facility]) [address] [place], [address], 01/10/2025 06:55:34 01/10/20 25 01/10/2025 COMP. METAB OLIC PANEL (14) chloride 104 mmol/ L 96-106 Not Available [facility] ([facility]) [address] [facility], [place], [address], 01/10/2025 06:55:34 01/10/20 25 01/10/2025 COMP. METAB OLIC PANEL (14) carbon dioxide, total 20 mmol/ L 20- Not Available [facility] ([facility]) [address] [facility], [place], [address], 01/10/2025 06:55:34 01/10/20 25 01/10/2025 COMP. METAB OLIC PANEL (14) calcium 9.0 mg/dL 8.6-10 .2 Not Available [facility] ([facility]) [address] [facility] [place], [address], 01/10/2025 06:55:34 01/10/20 25 01/10/2025 COMP. METAB OLIC PANEL (14) protein, total 6.8 g/dL 6.0-8. 5 Not Available [facility] ([facility]) [address] [facility], [place], [address], 01/10/2025 06:55:34 01/10/20 25 01/10/2025 COMP. METAB OLIC PANEL (14) albumin 4.4 g/dL 3.9-4. 9 Not Available [facility] ([facility]) [address] [facility], [place], [address], 01/10/2025 06:55:34 01/10/20 25 01/10/2025 COMP. METAB OLIC PANEL (14) globulin, total 2.4 g/dL 1.5-4. 5 Not Available [facility] ([facility]) [address] [place], [address], 01/10/2025 06:55:34 01/10/20 25 01/10/2025 COMP. METAB OLIC PANEL (14) bilirubin, total 0.6 mg/dL 0.0-1. 2 Not Available [facility] ([facility]) [address] [place], [address], 01/10/2025 06:55:34 01/10/20 25 01/10/2025 COMP. METAB OLIC PANEL (14) alkaline phosphatase 166 IU/L 44-121 above high normal Not Available [facility] ([facility]) [address] [place], [address], 01/10/2025 06:55:34 01/10/20 25 01/10/2025 COMP. METAB OLIC PANEL (14) AST (SGOT) 42 IU/L 0-40 above high normal Not Available [facility] ([facility]) [address] [place], [address], 01/10/2025 06:55:34 01/10/20 25 01/10/2025 COMP. METAB OLIC PANEL (14) ALT (SGPT) 54 IU/L 0-44 above high normal Not Available [facility] ([facility]) [address] [facility], [place], [address], 01/10/2025 06:55:34 01/10/20 25 01/10/2025 CBC WITH DIFFE RENTI AL/PL ATELE T WBC 6.4 x10e3 /uL 3.4-10 .8 Not Available [facility] ([facility]) [address] [place], [address], 01/10/2025 06:55:35 01/10/20 25 01/10/2025 CBC WITH DIFFE RENTI AL/PL ATELE T RBC 4.96 x10e6 /uL 4.14-5 .80 Not Available [facility] ([facility]) [address] [place], [address], 01/10/2025 06:55:35 01/10/20 25 01/10/2025 CBC WITH DIFFE RENTI AL/PL ATELE T hemoglobin 15.4 g/dL 13.0-1 7.7 Not Available [facility] ([facility]) [address] [place], [address], 01/10/2025 06:55:35 01/10/20 25 01/10/2025 CBC WITH DIFFE RENTI AL/PL ATELE T hematocrit 45.4 % 37.5-5 1.0 Not Available [facility] ([facility]) [address] [facility], [place], [address], 01/10/2025 06:55:35 01/10/20 25 01/10/2025 CBC WITH DIFFE RENTI AL/PL ATELE T MCV 92 fL 79-97 Not Available [facility] ([facility]) [address] [facility], [place], [address], 01/10/2025 06:55:35 01/10/20 25 01/10/2025 CBC WITH DIFFE RENTI AL/PL ATELE T MCH 31.0 pg 26.6-3 3.0 Not Available [facility] ([facility]) [address] [facility], [place], [address], 01/10/2025 06:55:35 01/10/20 25 01/10/2025 CBC WITH DIFFE RENTI AL/PL ATELE T MCHC 33.9 g/dL 31.5-3 5.7 Not Available [facility] ([facility]) [address] [facility], [place], [address], 01/10/2025 06:55:35 01/10/20 25 01/10/2025 CBC WITH DIFFE RENTI AL/PL ATELE T RDW 12.2 % 11.6-1 5.4 Not Available [facility] ([facility]) [address] [facility], [place], [address], 01/10/2025 06:55:35 01/10/20 25 01/10/2025 CBC WITH DIFFE RENTI AL/PL ATELE T platelets 201 x10e3 /uL 150-45 0 Not Available [facility] ([facility]) [address] [facility], [place], [address], 01/10/2025 06:55:35 01/10/20 25 01/10/2025 CBC WITH DIFFE RENTI AL/PL ATELE T neutrophils 67 % notest ab. Not Available [facility] ([facility]) [address] [facility], [place], [address], 01/10/2025 06:55:35 01/10/20 25 01/10/2025 CBC WITH DIFFE RENTI AL/PL ATELE T lymphs 19 % notest ab. Not Available [facility] ([facility]) [address] [facility], [place], [address], 01/10/2025 06:55:35 01/10/20 25 01/10/2025 CBC WITH DIFFE RENTI AL/PL ATELE T monocytes 7 % notest ab. Not Available [facility] ([facility]) [address] [facility], [place], [address], 01/10/2025 06:55:35 01/10/20 25 01/10/2025 CBC WITH DIFFE RENTI AL/PL ATELE T eos 5 % notest ab. Not Available [facility] ([facility]) [address] [facility], [place], [address], 01/10/2025 06:55:35 01/10/20 25 01/10/2025 CBC WITH DIFFE RENTI AL/PL ATELE T basos 1 % notest ab. Not Available [facility] ([facility]) [address] [facility], [place], [address], 01/10/2025 06:55:35 01/10/20 25 01/10/2025 CBC WITH DIFFE RENTI AL/PL ATELE T neutrophils (absolute) 4.3 x10e3 /uL 1.4-7. 0 Not Available [facility] ([facility]) [address] [facility], [place], [address], 01/10/2025 06:55:35 01/10/20 25 01/10/2025 CBC WITH DIFFE RENTI AL/PL ATELE T lymphs (absolute) 1.2 x10e3 /uL 0.7-3. 1 Not Available [facility] ([facility]) [address] [facility], [place], [address], 01/10/2025 06:55:35 01/10/20 25 01/10/2025 CBC WITH DIFFE RENTI AL/PL ATELE T monocytes(ab solute) 0.5 x10e3 /uL 0.1-0. 9 Not Available [facility] ([facility]) [address] [facility], [place], [address], 01/10/2025 06:55:35 01/10/20 25 01/10/2025 CBC WITH DIFFE RENTI AL/PL ATELE T eos (absolute) 0.3 x10e3 /uL 0.0-0. 4 Not Available [facility] ([facility]) [address] [facility], [place], [address], 01/10/2025 06:55:35 01/10/20 25 01/10/2025 CBC WITH DIFFE RENTI AL/PL ATELE T baso (absolute) 0.1 x10e3 /uL 0.0-0. 2 Not Available [facility] ([facility]) [address] [facility], [place], [address], 01/10/2025 06:55:35 01/10/20 25 01/10/2025 CBC WITH DIFFE RENTI AL/PL ATELE T immature granulocytes 1 % notest ab. Not Available [facility] ([facility]) [address] [place], [address], 01/10/2025 06:55:35 01/10/20 25 01/10/2025 CBC WITH DIFFE RENTI AL/PL ATELE T immature grans (abs) 0.0 x10e3 /uL 0.0-0. 1 Not Available [facility] ([facility]) [address] [place], [address], 01/10/2025 06:55:35 01/10/2001/10/2025 PROST ATE-S PECIF IC AG prostate specific Ag 2.6 NG/mL 0.0-4. 0 Asuncion ECLIA metho dolog y. Accor ding to the Ameri can Urolo gical Assoc iatio n, Serum PSA shoul d decre ase and remai n at undet ectab le level s after radic al prost atect peace. The AUA defin es bioch emica l recur rence as an initi al PSA value 0.2 ng/mL or great er follo wed by a subse quent confi rmato ry PSA value 0.2 ng/mL or great er. Value s obtai oleg with diffe rent assay metho ds or kits canno t be used inter yin eably . Resul ts canno t be inter prete d as absol [place] evide nce of the prese nce or absen ce of caden [place]ster se. Not Available [facility] ([facility]) [address] [facility], [place], [address], 01/10/2025 06:55:37 01/16/2001/15/2025 COLOG UARD cologuard result reportable NEGATI VE negati ve normal The Colog uard (TM) test was perfo rmed on this speci men. NEGAT AMOS TEST RESUL T. A negat amos Colog uard resul t indic ates a low likel ihood that a color ectal cance r (CRC) or advan lucía adeno ma (elysia omato us polyp s with more advan lucía pre-m align ant featu res) is prese nt. The chanc e that a perso n with a negat amos Colog uard test has a color ectal cance r is less than 1 in 1500 (nega tive predi ctive value >99.9 %) or has an advan lucía adeno ma is less than 5.3% (nega tive predi ctive value 94.7% ). These data are based on a prosp ectiv e cross -sect ional study of 10,00 0 indiv idual s at [facility] risk for color ectal cance r who were scree oleg with both Colog uard and colon oscop y. (Eamon Valdez et al, N Engl J Med 2014; 370(1 4):12 86-12 97) The nii l value (refe rence range ) for this assay is negat amos. COLOG UARD RE-SC REENI NG RECOM MENDA TION: Perio dic color ectal cance r scree violeta is an impor tant part of preve ntive healt hcare for asymp tomat ic indiv idual s at [facility] risk for color ectal cance r. Follo wing a negat amos Colog uard resul t, the Ameri can Cance r Socie ty and U.S. Multi -Soci ety Task Force scree violeta guide lines recom mend a Colog uard re-sc reeni ng inter glo of 3 years . Refer ences : Ameri can Cance r Socie ty Guide line for Color ectal Cance r Scree violeta: https ://ww w.can cer.o rg/ca ncer/ colon -rect al-ca ncer/ detec tion- diagn osis- stagi ng/ac s-rec ommen datio ns.ht ml.; Roman VALENTE, Lisa stevenson CR, Chaya DORAN, Color ectal Cance r Scree violeta: Recom menda tions for Physi cians and Patie nts from the U.S. Multi -Soci ety Task Force on Color ectal Cance r Scree violeta , Karolina glover y 2017; 112:1 016-1 030. TEST DESCR IPTIO N: [place] site algor ithmi c jesus sis of stool DNA-b iomar kers with hemog lobin immun oassa y. Quant itati ve value s of indiv idual bioma rkers are not repor table and are not assoc iated with indiv idual bioma rker resul t refer ence range s. Colog uard is inten ded for color ectal cance r scree violeta of adult s of eithe r sex, 45 years or older , who are at [facility] for color ectal cance r (CRC) . Colog uard has been appro samira for use by the U.S. FDA. The perfo rmanc e of Colog uard was estab lishe d in a cross secti onal study of [facility] adult s aged 50-84 . Colog uard perfo rmanc e in patie nts ages 45 to 49 years was estim ated by sub-g roup jesus sis of near- age group s. Colon oscop ies perfo rmed for a posit amos resul t may find as the most clini tres signi fican t lesio n: color ectal cance r [4.0% ], advan lucía adeno ma (incl uding sessi le homero brett polyp s great er than or equal to 1cm diame ter) [20%] or non- advan lucía adeno ma [31%] ; or no color ectal neopl pita [45%] . These estim ates are deriv ed from a prosp ectiv e cross -sect ional scree violeta study of 0 indiv idual s at [facility] risk for color ectal cance r who were scree oleg with both Colog uard and colon oscop y. (Eamon Quiroga. et al, N Engl J Med 2014; 370(1 4):12 86-12 97.) Colog uard may produ ce a false negat amos or false posit amos resul t (no color ectal cance r or preca ncero us polyp prese nt at colon oscop y follo w up). A negat amos Colog uard test resul t does not guara ntee the absen ce of CRC or advan lucía adeno ma (pre- cance r). The curre nt Colog uard scree violeta inter glo is every 3 years . (Amer ican Cance r Socie ty and U.S. Multi -Soci ety Task Force ). Colog uard perfo rmanc e data in a 0 patie nt pivot al study using colon oscop y as the refer ence metho d can be [facility]es [facility] loc[facility] ion: www.e xactl abs.c om/re sults . Addit ional descr iptio n of the Colog uard test proce ss, warni ngs and preca ution s can be found at www.padmini oliver.padmini om. Not Available [facility] (Cologuard Orders Only) [address], [place], [address], 01/20/2025 14:15:15 03/20/20 24 03/20/2024 US, joanna yoo r No observ ation record ed. [facility] [address] [place], [address], 04/12/2024 15:08:09 Result Notes None recorded. Problems Name Problem SNOMED Code Status Onset Date Resolution Date Notes Provider Name and Address Organization Details Recorded Time Hyperlipidemia 69945166 Active 2023 Yann Daley MD Attn: Yesenia g,[address] [facility], [place], [address], [facility] - [facility] 4 18:13:59 Polyp of gallbladder 658151080 Active 2024 Yann Daley MD Attn: Accountin g,[address] 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, [place], [address], [facility] - SIF 5 14:41:26 Problem Notes None recorded. Procedures Surgical History Date Name Laterality Status Provider Name and Address Organization Details Recorded Time procedure on foot completed Radha Mcfarland [place] - [facility] 12/08/2023 10:39:38 Imaging Results Imaging Date Name Status LastModified by Organiz ation Details LastModified Time 03/20/2024 US, gallbladder completed [facility] [address] [place], [address], 04/12/2024 15:08:09 Procedure Notes None recorded. Medical Equipment None Reported. Allergies No known drug allergies Medications Name Sig Start Date Stop Date Status Note LastModified by Organization Details LastModified Time atorvastati n 10 mg tablet TAKE 1 TABLET BY MOUTH EVERY DAY active Not Available Not Available No t Available prednisolon e acetate 1 % eye drops,suspe nsion INSTILL 1 DROP INTO BOTH EYES 4 TIMES A DAY FOR 1 WEEK, THEN 1 DROP TWICE A DAY FOR 1 WEEK active Not Available Not Available No t Available triamcinolo ne acetonide 0.1 % topical ointment APPLY TO RASH ON NECK AND ARMS TWICE A DAY X2 WEEKS NEEDED active Not Available Not Available No t Available clobetasol 0.05 % scalp solution APPLY TO AFFECTED AREAS OF SCALP TWICE DAILY X2 WEEKS NEEDED active Not Available Not Available No t Available amoxicillin 875 mg-potassiu m clavulanate 125 mg tablet TAKE 1 TABLET BY MOUTH EVERY 12 HOURS 12/07 completed Not Available Not Available Not Available Vitals Date Recorded Body weight Body mass index (BMI) Body height Oxygen saturation Oxygen saturation in Arterial blood by Pulse oximetry Respiratory rate Body temperature Heart rate Systolic blood pressure Diastolic blood pressure Provider Name and Address Organization Details Last Updated DateTime 4 [address].1 g 27.3 kg/m2 180.34 cm 96 % 96 % 18 /min 98.1 [degF] 78 /min 140 mm[Hg] 90 mm[Hg] Radha Mcfarland MA [facility] SIF 4 10:44:17 Date Recorded Body height Body mass index (BMI) Body weight Heart rate Oxygen saturation Oxygen saturation in Arterial blood by Pulse oximetry Systolic blood pressure Diastolic blood pressure Provider Name and Address Organization Details Last Updated DateTime 4 180.34 cm 27.5 kg/m2 02322.7 g 69 /min 98 % 98 % 122 mm[Hg] 68 mm[Hg] Casie Patel MA [facility] S[facility] 4 15:14:00 Date Recorded Body height Body mass index (BMI) Body weight Heart rate Oxygen saturation Oxygen saturation in Arterial blood by Pulse oximetry Systolic blood pressure Diastolic blood pressure Provider Name and Address Organization Details Last Updated DateTime 5 180.34 cm 28 kg/m2 47041.3 5 g 76 /min 97 % 97 % 122 mm[Hg] 64 mm[Hg] Casie Patel MA [facility] 09:54:30 Social History Question Answer Notes LastModified by Organizat ion Details LastModified Time Tobacco Smoking Status Never Smoker Radha GIO Mcfarland, [facility] 12/08/2023 10:38:58 Do You Have An Advance Directive? No Information n ot available 06/27/2024 What Is Your Level Of Alcohol Consumption? None Information not available 12/08/2023 Are You Blind Or Do You Have Difficulty Seeing? No Information n ot available 12/08/2023 What Is Your Level Of Caffeine Consumption? Moderate Soda Information not available 12/08/2023 In The 14 Days Before Symptom Onset, Have You Had Close Contact With A Laboratory-confirm ed COVID-19 While That Case Was Ill? No Information n ot available 06/27/2024 In The 14 Days Before Symptom Onset, Have You Had Close Contact With A Person Who Is Under Investigation For COVID-19 While That Person Was Ill? No Information not available 06/27/2024 Have You Been To An Area Known To Be High Risk For COVID-19? No Information not available 06/27/2024 Are You Currently Employed? No Information not available 06/27/2024 Are You Deaf Or Do You Have Serious Difficulty Hearing? No Information not available 12/08/2023 What Type Of Diet Are You Following? REGULAR Information n ot available 12/08/2023 Are There Any Guns Present In Your Home? No Information not available 06/27/2024 What Was The Date Of Your Most Recent Tobacco Screening? 01/09/2025 Information not available 01/09/2025 What Is Your Relationship Status? Information not available 06/27/2024 Do You Use Your Seat Belt Or Car Seat Routinely? Yes Information not available 12/08/2023 Do You Have Smoke And Carbon Monoxide Detectors In Your Home? Yes Information not available 12/08/2023 Do You Use Any Illicit Or Recreational Drugs? No Information not available 12/08/2023 Do You Use Sunscreen Routinely? Yes Information not available 06/27/2024 Has Tobacco Cessation Counseling Been Provided? No Information not available 06/27/2024 Do You Or Have You Ever Used Any Other Forms Of Tobacco Or Nicotine? No Information not available 12/08/2023 Sex: Male Functional Status Question Answer Note LastModified by Organization D etails LastModified Time Are you able to care for yourself? Yes Information n ot available 12/08/2023 Mental Status None recorded. Family History Relationship Description Onset Age of this Age Resolved Age Notes LastModified by Organization Details LastModified Time Mother Hypertensive disorder hdoverma Not available 2023 10:40:03 Mother Diabetes mellitus hdoverma Not available 2023 10:40:15 Father Asthma hdoverma Not available 0 12/08/2023 10:40:08 Medical History Condition Response Coronary Artery Disease N Other N High Blood Pressure N Atrial Fibrillation N Kidney or Bladder Problems N Thyroid Problems N GI Problems N Depression N COPD N Blood Clots N Skin Problems N Anemia N Heart Attack ([place]) N Anxiety Disorder N Diabetes N Muscle, Joint, or Bone Problems N Seizures/Epilepsy N Acid Reflux (GERD) N Cancer N Stroke N Asthma N Allergies N High Cholesterol Y Hepatitis N Liver Disease N Headaches N Heart Failure N Osteoporosis N Immunizations Vaccine Type Date Status Note Provider Nam e and Address Organization Details Recorded Time Tdap 03/15/2023 erendira Mcfarland MA [facility] 12/08/2023 10:41:29 Past Encounters Encounter ID Performer Location Encounter Start Date Encounter Closed Date Diagnosis/Indication Diagnosis SNOMED-CT Code Diagnosis ICD10 Code Diagnosis Note [id number] Yann Daley MD [facility] (Adult Med) [address] [place] [id number] 12/08/2023 10:14:25 12/08/2023 11:22:32 Hyperlipidemia 48458039 E78.5 Screening for malignant neoplasm of prostate 475708367 Z12.5 Dry eyes 204183153 H04.1 21 H04.845 [id number] MD [facility] (Adult Med) [address] [place] [address] [phone] [id number] 06/27/2024 14:31:10 06/27/2024 16:37:44 Overweight 984373701 E66.3 Hyperlipidemia 72470091 E78.5 [id number] Yann Daley MD [facility] (Adult Med) [address] [place] [address] 01/09/2025 09:37:32 01/09/2025 10:13:33 Hyperlipidemia 63317906 E78.5 Body mass index 25-29 - overweight 013038020 Z68.28 Overweight 370020748 E66 .3 Long-term drug therapy 752180234 Z79.899 Screening for malignant neoplasm of colon 398580953 Z12.11 Screening for malignant neoplasm of prostate 316366672 Z12.5 Steatotic liver disease 652322927 K76.0 Health Concerns Section Related Observation LastModified by Organization Detai ls LastModified Time None Recorded Concern Status LastModified by Organization Details LastModified Time None Recorded Advance Directives Directive N: Payers Encounter Date Sequence Insurance Name Policy Number Policy Brewster Covered Member ID Brewster Member ID Guarantor Name 12/08/2023 1 [employer] [id number] Jemal Rosas [id number] Jemal Rosas 06/27/2024 1 [facility] BENEFITS MANAGEMENT [id number] Jemal Rosas [id number] Jemal Rosas 06/27/2024 1 [facility] (MEDICARE REPLACEMENT/A DVANTAGE - PPO) [id number] Jemal Rosas [id number] Jemal Rosas 01/09/2025 1 [facility] (MEDICARE REPLACEMENT/A DVANTAGE - PPO) [id number] Jemal Rosas [id number] Jemal Rosas Notes Date Note Type Note Provider Name and Address Organization Details Recorded Time 12/08/2023 text/html Hyperlipidemia taking atorvastatin try to follow low-fat diet. He has been plagued with dry eyes and would like a referral Yann Daley MD Attn: [address] [facility], [place], [address], [place] - [place] 12/11/2023 14:20:47 06/27/2024 text/html dyslipidemia jenny ing his atorvastatin trying to follow a low-fat diet Yann Daley MD Attn: [address] [facility], [place], [address], [place] - [place] 07/08/2024 18:15:19 01/09/2025 text/html Taking his medication without any problems Yann Daley MD Attn: [address] [facility], [place], [address], [place] [facility] - [facility] 01/13/2025 14:43:07
== END 2025-01-31 06:56 | disposition home or self-care (01) ==
PROVIDERS: PCP Internal Medicine; Visit Provider Internal Medicine
DX: K82.4 Cholesterolosis of gallbladder (principal)
CPT/HCPCS: 76705

== ENCOUNTER 2025-05-18 10:43 | Emergency (ER) | payer MEDICARE, SELFPAY ==
--- OUTSIDE RECORDS SUMMARY | 2010-04-07 09:30 | XMS_ITS | Continuity of Care Document ---
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 Name Role Phone Rivera OD, Jemal Unavailable Unavailable Procedures Procedure Date Office/outpatient Visit, Est Office/outpatient Visit, Est Office/outpatient Visit, Est Office/outpatient Visit, Est Office/outpatient Visit, Est Office/outpatient Visit, Est Office/outpatient Visit, Est Office/outpatient Visit, Est Office/outpatient Visit, Est Office/outpatient Visit, Est Office/outpatient Visit, Est -2009 Eye Exam Established Pt Office/outpatient Visit, Est Eye Exam Established Pt Office/outpatient Visit, Est Office/outpatient Visit, Est -2007 Office/outpatient Visit, Est Advance Directives Directive Yes / No Effective Date File Name No Information Encounters Encounter Description Practice Location Reason(s) For Visit Diagnoses Date Provider Providers Copied on Encounter Office/outpat ient Visit, [facility] [place], [address], [place], [place], [id number], [place] tel:[phone] [facility] No Information 3-201 0 Rivera OD Jemal. [address] , [address], [place], [address], [place]. tel:[phone] Office/outpat ient Visit, [facility] [place], [address] [place] [address] [address], [place], [place], [address], [place] tel:[phone] [facility] No Information January- 1-201 0 Rivera OD Jemal. [address], [place], [address], [place]. tel:[phone] Office/outpat ient Visit, [facility], [address] [place] [address] [address], [place], [place], [address], [place] tel:[phone] [facility] [place] No Information Dec-2 7-201 0 Krishnasamy Lobo. [address] [facility] [address], [place], [place], [facility], [place]. tel:[phone] Office/outpat ient Visit, [facility], [address] [place] [address] [address], [place], [place], [address], [place] tel:[phone] [facility] No Information Dec-2 0-201 0 Krishnasamy Lobo. [address] [place] [address] [address], [place], [place], [facility], [place]. tel:[phone] Office/outpat ient Visit, [facility], [address] [place] [address] [address], [place], [place], [address], [place] tel:[phone] [facility] [place] No Information Dec-1 3-201 0 Krishnasamy Lobo. [facility] [address], [place], [address], [place]. tel:[phone] Office/outpat ient Visit, [facility], [address] [place] [address] [address], [place], [place], [address], [place] tel:[phone] [facility] [place] No Information Apr-0 5-201 0 Krishnasamy Lobo. [address] [facility] [place] [address], [place], [address], [place]. tel:[phone] Office/outpat ient Visit, [facility], [address], [place], [place], [address], [place] tel:[phone] [facility] No Information Mar-3 1-201 0 Krishnasamy Lobo. [address], [place], [address], [place]. tel:[phone] Office/outpat ient Visit, [facility], [address] [place] [address] [address], [place], [place], [address], [place] tel:[phone] [facility] [place] No Information Mar-3 0-201 0 Krishnasamy Lobo. Critical access [facility] [address], [place], [place], [facility], [place]. tel:[phone] Office/outpat ient Visit, [facility], [address] [place] [address] [address], [place], [place], [address], [place] tel:[phone] [facility] [place] No Information Mar-2 9-201 0 Krishnasamy Lobo. Critical access [facility] [address], [place], [address], [place]. tel:[phone] Office/outpat ient Visit, [facility], [address] [place] [address] [address], [place], [place], [address], [place] tel:[phone] [facility] No Information Mar-2 7-201 0 Rivera OD Jemal. Critical access [facility], [place], [address], [place]. tel:[phone] Office/outpat ient Visit, [facility], [address] [place] [address] [address], [place], [place], [address], [place] tel:[phone] [facility] No Information Mar-2 6-201 0 Rivera OD Jemal. [address], [place], [place], [facility], [place]. tel:[phone] [facility], [address], [place], [place], [address], [place] tel:[phone] [facility] No Information Mar-2 5-201 0 Rivera OD Jemal. [address], [place], [facility], [place]. tel:[phone] Office/outpat ient Visit, [facility], [address] [place] [address] [address], [place], [place], [address], [place] tel:[phone] [facility] No Information Dec-3 1-200 9 Rivera OD Jemal. [address], [place], [facility], [place]. tel:[phone] [facility], [address] [place] [address] [address], [place], [place], [address], [place] tel:[phone] [facility] No Information Dec-1 8-200 9 Rivera OD Jemal. [address] , [address], [place], [place], [facility], [place]. tel:[phone] Office/outpat ient Visit, [facility], [address] [place] [address] [address], [place], [place], [address], [place] tel:[phone] [facility] No Information Nov-2 0-200 9 Rivera OD Jemal. [address], [place], [facility], [place]. tel:[phone] Office/outpat ient Visit, [facility], [address] [place] [address] [address], [place], [place], [address], [place] tel:[phone] [facility] No Information Apr-2 5-200 8 Rivera OD Jemal. [address] , [address], [place], [address], [place]. tel:[phone] Office/outpat ient Visit, [facility], [address], [place], [place], [address], [place] tel:[phone] [facility] No Information 2-200 8 Rivera OD Jemal. [address], [place], [address], [place]. tel:[phone] Family History Family Member Type Diagnosis Age At Onset No Information Payers Payer name Insurance type Covered alliance party ID Authorboonea yovani(s) [employer] SOI CI [id number] Social History Type Description Quantity Date Captured Comments Sex Male Smoking Status No Information Chief Complaint And Reason For Visit No Information Reason For Referral Reason For Referral No Information History Of Present Illness Encounter Date Complaint History Of Prese nt Illness No Information Functional Status Date Functional Assessmen t No Information Instructions Date Instruction Additional Infor mation No Information Assessments Type Assessment Date No Information Patient Care Teams Name Effective Dates (start - stop) Status Members No Information
[2025-05-18 10:49] VITALS: BP 136/65; PULSE 75; RESP 16; TEMP 36.5; O2SAT 98
--- NOTE | 2025-05-18 10:55 | PC.NURSE ---
Visual acuity: R. eye 20/100 L. eye 20/50 Both eyes 20/50
[2025-05-18] MEDS: FLUORESCEIN SOD 1 MG/STRIP EACH EYE (11:46)
[2025-05-18] MEDS: TETRACAINE HCL 0.5% OPHTH SOLN 4 ML BTL 1 DROP EACH EYE (11:46)
--- NOTE | 2025-05-18 11:58 | ED.EYEPROB ---
HPI - Eye Problem General Chief complaint: Eye Problems Stated complaint: R. eye pain Time Seen by Provider: 05/18/25 11:11 History of Present Illness HPI Narrative: Patient is a 64-year-old male who presents ER with injury to the right eye. He has dry eyes and was rubbing his eye and then felt like he got something stuck in there. He has pain with blinking. He has mild photophobia. He has tearing. There is redness of his color. He wears glasses, no contacts. Related Data Home Medications ?Medication ?Instructions ?Recorded ?Confirmed ?Last Taken ?Type atorvastatin 10 mg tablet (Lipitor) 10 mg PO DAILY 02/20/25 02/23/25 Unknown History Allergies Allergy/AdvReac Type Severity Reaction Status Date / Time No Known Allergies Allergy Mild Verified 05/18/25 10:53 Review of Systems Constitutional: Constitutional: Reports no additional constitutional complaints Eyes: Eyes: Reports no additional eye complaints ENT: Reports system reviewed and no additional complaints, except as documented PMF Past Medical History Medical History (Updated 05/18/25 @ 12:01 by Vaibhav Mayer MD) Allergies Family History Family History Mother Hypertension Family history of malignant neoplasm Family history of diabetes mellitus in first degree relative Sibling Family history of malignant neoplasm Social History Social History (Updated 02/20/25 @ 14:02 by JULIO Christine) Smoking status: Unknown if ever smoked Alcohol intake: never Substance use: never Substance use type: does not use Do You Feel Safe in your Home?: Yes Lack of Transportation: No Lack of Food: Never True Current Housing: I Have Housing Concerned About Future Housing: No Difficulty Paying Gas/Electric Bills: No Difficulty Paying for Meds: No Currently Unemployed: No Education: High School Diploma/GED Difficulty w/ Childcare or Family Care: No Living arrangements: with family Occupation/Education: retired Agree to blood products: Yes Exam Narrative: GENERAL: Well-appearing, well-nourished, and in no acute distress. HEAD: Normocephalic, atraumatic. EYES: PERRL and EOMI. S scleral injection and conjunctival irritation. Eyelid eversion performed. No foreign body identified. Both large corneal abrasion medial aspect of the cornea with fluorescein staining and magnification. ENT: Mucous membranes moist. EXTREMITIES: Normal range of motion. No edema. NEURO: Alert and oriented x3. PSYCH: Normal mood and affect. Course Course Emergency Course: Was patient resting comfortably after tetracaine. Educated on diagnosis and treatment plan. Discharge. Vital Signs Vital signs: Vital Signs Temperature 97.7 F 05/18/25 10:49 Pulse Rate 75 05/18/25 10:49 Respiratory Rate 16 05/18/25 10:49 Blood Pressure 136/65 05/18/25 10:49 Pulse Oximetry 98 05/18/25 10:49 Oxygen Delivery Room Air 05/18/25 10:49 Temperature 97.7 F 05/18/25 10:49 Pulse Rate 75 05/18/25 10:49 Respiratory Rate 16 05/18/25 10:49 Blood Pressure 136/65 05/18/25 10:49 Pulse Oximetry 98 05/18/25 10:49 Oxygen Delivery Room Air 05/18/25 10:49 Discharge Plan Discharge Clinical Impression: Corneal abrasion Patient Disposition: Home Condition: Stable Instructions: Corneal Abrasion (ED) Additional Instructions: Follow-up with your eye doctor. Return the ER if you have worsening pain, you have worsening vision, or you have additional concerns. Patient Language: Kinyarwanda Prescriptions: New erythromycin 5 mg/gram (0.5 %) ointment 0.5 inch RIGHT EYE QID Qty: 3.5 0RF hydrocodone-acetaminophen 5-325 mg tablet 1 tablet PO Q6H PRN (Reason: pain) Qty: 10 0RF No Action atorvastatin [Lipitor] 10 mg tablet 10 mg PO DAILY Follow-up/Referrals: Edi,MD Yann [Primary Care Provider] - 1 Week
== END 2025-05-18 12:17 | disposition home or self-care (01) ==
PROVIDERS: Emergency Provider Emergency Medicine; PCP Internal Medicine
DX: S05.01XA Injury of conjunctiva and corneal abrasion without foreign body, right eye, initial encounter (principal); X58.XXXA Exposure to other specified factors, initial encounter
CPT/HCPCS: 99283